=== PATIENT | female | born 1945 | race Caucasian/White ===

== ENCOUNTER 2016-05-15 12:38 | Inpatient (IN) | payer OTHER ==
[~2016-05-15] VITALS: Ht 149.9 cm; Wt 63.0 kg
[~2016-05-15 12:38] MED LIST: ALBU1.257 NEB; ALBUAER INH; CHOL200010 PO; DIPH-437 PO; DOCU-94 PO; FEXO1TAB49 PO; HYDR-5688 PO; METO1TAB69 PO; MULTCAP98 PO; ONDA8TAB6 PO; PROC1TAB5 PO; SPRIN/30 INH; VNTHFA/IN INH; ZOLE1INJ IV
[2016-05-15] MEDS ORDERED: OPTIRAY 320 IV PRN (13:15)
[2016-05-15 13:23] LABS: BASO % 0.4 %; BASO ABS # 0.04 K/uL (0-0.2); COMPLETE YES; EOS % 3.5 %; HEMATOCRIT 34.7 % (37-47); IG% 0.3 %; LYMPH % 8.2 %; LYMPH ABS # 0.87 K/uL (1.2-3.4); MEAN CELL VOLUME 84.6 fL (80-100); MEAN CORPUSCULAR HEMOGLOBIN 28.5 pg (25-34); MEAN CORPUSCULAR HGB CONC 33.7 g/dl (32-36); MONO % 3.7 %; NEUT % 83.9 %; PLATELET COUNT 312 K/uL (130-400)
[2016-05-15] MEDS ORDERED: LOSA50TA6 PO ×2 (13:25→17:30)
[2016-05-15] MEDS ORDERED: PEMB1INJ IV (13:25)
--- NOTE | 2016-05-15 13:33 | EMERGENCY ROOM VISIT NOTE ---
History Report prepared by Mavis: Kaykay Crocker Under the Supervision of: Dr. Christos Mena D.O. First contact with patient: 12:51 Chief Complaint: RESPIRATORY PROBLEMS Stated Complaint: L SIDED PAIN, LUNG CA PT History of Present Illness The patient is a 70 year old female who presents to the Emergency Room with complaints of persistent respiratory problems that have worsened over the last three to four days. Per the patient's son, the patient is currently undergoing chemotherapy for stage IV metastatic lung cancer. He states that the patient has had pain in her left side. The patient's son states that her pain started 3 -4 days ago. The patient notes a persistent cough but denies any fever or chills. She denies wearing oxygen at home. The patient notes a history of hypertension, cholecystectomy, , and a back surgery. She states that she took a hydrocodone prior to arrival. The patient denies any tobacco or alcohol use. The patient's son states that the patient is supposed to have chemotherapy every three weeks. Source of History: patient Onset: 3-4 days Position: other (global) Quality: other (respiratory porblems) Timing: other (persistent) Associated Symptoms: + cough, No chills, No fevers Note: Associated Symptoms: left side pain Review of Systems See HPI for pertinent positives & negatives. A total of 10 systems reviewed and were otherwise negative. Past Medical & Surgical Medical Problems: (1) Cancer Surgical Problems: (1) S/P cholecystectomy Family History Cancer Heart disease Hypertension Lung disease Social History Smoking Status: Former Smoker Alcohol Use: none Current/Historical Medications Scheduled Cholecalciferol (Vitamin D), 2,000 UNITS PO DAILY Docusate Sodium (Colace), 100 MG PO BID Fexofenadine Hcl (Delores Allergy), 180 MG PO DAILY Losartan Potassium (Cozaar), Unknown Dose PO DAILY Metoprolol Succ (Toprol Xl) (Toprol-Xl ), 100 MG PO DAILY Multiple Vitamins W/ Minerals (Icaps), 1 CAP PO DAILY Pembrolizumab (Keytruda), 100 MG IV EVERY 3 WEEKS Tiotropium [place] (Spiriva Handihaler), 1 CAP INH DAILY Zoledronic Acid (Zometa), 4 MG IV MONTHLY Scheduled PRN Acetaminophen/Diphenhydramine (Tylenol Pm), 1 TAB PO HS PRN for Insomnia Albuterol Hfa (Ventolin Hfa), 2 PUFFS INH Q6H PRN for SOB/Wheezing Albuterol Sulfate (Albuterol Sulfate), 1 VIAL NEB Q4 PRN for SOB/Wheezing Hydrocodone/Acetaminophen 5MG/325MG ([place] 5MG/325MG), 1 TABLET PO Q6 PRN for Pain Allergies Coded Allergies: Latex (Verified Allergy, Mild, Itching, 02/14/16) Nitrofurantoin (Verified Allergy, Unknown, ., 02/14/16) Sulfamethoxazole w/Trimethoprim (Verified Allergy, Unknown, ., 02/14/16) Physical Exam Vital Signs Date Time Temp Pulse Resp B/P Pulse Ox O2 Delivery O2 Flow Rate FiO2 05/15/16 15:29 87 22 167/95 97 Nasal Cannula 3.0 05/15/16 14:42 81 18 189/102 05/15/16 13:04 94 Nasal Cannula 2.0 05/15/16 13:04 80 05/15/16 12:56 94 Nasal Cannula 2.0 05/15/16 12:56 94 Nasal Cannula 2.0 05/15/16 12:45 37.0 87 18 139/91 84 Room Air Physical Exam GENERAL: Patient is awake, alert, mildly anxious appearing, overall comfortable appearing, no apparent pain. EYES: The conjunctivae are clear. The pupils are round and reactive. EARS, NOSE, MOUTH AND THROAT: The nose is without any evidence of any deformity. Mucous membranes are moist tongue is midline NECK: The neck is nontender and supple. RESPIRATORY: Lung sounds diminished in left lung. Sounds are absent at the left base. Mild tachypnea and conversational dyspnea noted. CARDIOVASCULAR: Regular rate and rhythm noted there no murmurs rubs or gallops normal S1 normal S2 GASTROINTESTINAL: The abdomen is soft. Bowel sounds are present in all quadrants. Abdomen is nontender MUSCULOSKELETAL/EXTREMITIES: There is no evidence of gross deformity full range of motion is noted in the hips and shoulders SKIN: There is no obvious evidence of any rash. There are no petechiae, pallor or cyanosis noted. NEUROLOGIC: Patient is awake alert and oriented x3. Medical Decision & Procedures ER Provider Diagnostic Interpretation: Radiology results as stated below per my review and radiologist interpretation: CHEST CTA for PULMONARY ARTERIES CT DOSE: 255.88 mGy.cm HISTORY: Chest pain dyspnea TECHNIQUE: Multiaxial CT images of the chest were performed following the intravenous administration of contrast to evaluate the pulmonary arteries. Maximal intensity projection images were also obtained. COMPARISON STUDY: 03/16/2016 FINDINGS: Progressive left pleural effusion. Left lower lobe atelectasis. Study is negative for pulmonary embolus. Mucous plug in the lung bases. Findings suggesting a component of mild pulmonary hypertension. Mild atelectasis right base. IMPRESSION: 1. Study is negative for pulmonary embolus. 2. Progressive increase in size of a left pleural effusion. 3. Progressive left lower lobe consolidative change. 4. Baseline emphysematous and interstitial change. 5. Secondary evidence for a component of pulmonary arterial hypertension 6. Progressive mucous plugging bilaterally Electronically signed by: Jose Pritchett M.D. 05/15/2016 3:09 PM Dictated Date/Time: 05/15/2016 3:05 PM SINGLE VIEW CHEST CLINICAL HISTORY: Atypical chest pain. FINDINGS: An AP, portable, upright chest radiograph is compared to study dated 02/14/2016 and correlated with chest CT dated 03/16/2016. The examination is degraded by portable technique and patient rotation. A right sided central venous infusion port is new from 02/14/2016. The heart is enlarged and there is atherosclerotic calcification of the thoracic aorta. The pulmonary vasculature is noncongested. Enlargement of the central pulmonary arteries indicates pulmonary artery hypertension. Advanced emphysema and chronic interstitial thickening is similar to previous. There is a left pleural effusion with left basilar consolidation. The patient's known left perihilar mass lesion is not well assessed. No pneumothorax is seen. The skeletal structures are osteopenic. The bony thorax is grossly intact. Degenerative change is seen throughout the thoracic spine. IMPRESSION: 1. Cardiomegaly and advanced emphysema. 2. Layering left pleural effusion and left basilar consolidation is similar to the 03/16/2016 examination. This likely represents atelectasis. Superimposed pneumonia would be impossible to exclude. Clinical correlation required. 3. The patient's known left perihilar lung mass is not well-visualized. 4. A central venous infusion port is new from previous. Electronically signed by: Eric Griffin M.D. 05/15/2016 1:31 PM Dictated Date/Time: 05/15/2016 1:28 PM Laboratory Results 05/15/16 13:10 Red Blood Count 4.10, Mean Corpuscular Volume 84.6, Mean Corpuscular Hemoglobin 28.5, Mean Corpuscular Hemoglobin Concent 33.7, Mean Platelet Volume 8.0, Neutrophils (%) (Auto) 83.9, Lymphocytes (%) (Auto) 8.2, Monocytes (%) (Auto) 3.7, Eosinophils (%) (Auto) 3.5, Basophils (%) (Auto) 0.4, Neutrophils # (Auto) 8.90, Lymphocytes # (Auto) 0.87, Monocytes # (Auto) 0.39, Eosinophils # (Auto) 0.37, Basophils # (Auto) 0.04 05/15/16 13:10 Test 05/15/16 13:10 White Blood Count 10.60 K/uL (4.8-10.8) Red Blood Count 4.10 M/uL (4.2-5.4) Hemoglobin 11.7 g/dL (12.0-16.0) Hematocrit 34.7 % (37-47) Mean Corpuscular Volume 84.6 fL (80-100) Mean Corpuscular Hemoglobin 28.5 pg (25-34) Mean Corpuscular Hemoglobin Concent 33.7 g/dl (32-36) Platelet Count 312 K/uL (130-400) Mean Platelet Volume 8.0 fL (7.4-10.4) Neutrophils (%) (Auto) 83.9 % Lymphocytes (%) (Auto) 8.2 % Monocytes (%) (Auto) 3.7 % Eosinophils (%) (Auto) 3.5 % Basophils (%) (Auto) 0.4 % Neutrophils # (Auto) 8.90 K/uL (1.4-6.5) Lymphocytes # (Auto) 0.87 K/uL (1.2-3.4) Monocytes # (Auto) 0.39 K/uL (0.11-0.59) Eosinophils # (Auto) 0.37 K/uL (0-0.5) Basophils # (Auto) 0.04 K/uL (0-0.2) RDW Standard Deviation 48.2 fL (36.4-46.3) RDW Coefficient of Variation 15.5 % (11.5-14.5) Immature Granulocyte % (Auto) 0.3 % Immature Granulocyte # (Auto) 0.03 K/uL (0.00-0.02) Prothrombin Time 13.1 SECONDS (9.0-12.0) Prothromb Time International Ratio 1.2 (0.9-1.1) Activated Partial Thromboplast Time 32.7 SECONDS (21.0-31.0) Partial Thromboplastin Ratio 1.3 Anion Gap 9.0 mmol/L (3-11) Est Creatinine Clear Calc Drug Dose 68.2 ml/min Estimated GFR () 105.9 Estimated GFR (Non- 91.4 BUN/Creatinine Ratio 17.3 (10-20) Calcium Level 8.1 mg/dl (8.5-10.1) Magnesium Level 1.9 mg/dl (1.8-2.4) Total Bilirubin 0.5 mg/dl (0.2-1) Direct Bilirubin 0.2 mg/dl (0-0.2) Aspartate Amino Transf (AST/SGOT) 9 U/L (15-37) Alanine Aminotransferase (ALT/SGPT) 13 U/L (12-78) Alkaline Phosphatase 62 U/L (45-117) Total Creatine Kinase 33 U/L (26-192) Creatine Kinase MB 0.7 ng/ml (0.5-3.6) Creatine Kinase MB Ratio 2.1 (0-3.0) Troponin I < 0.015 ng/ml (0-0.045) Pro-B-Type Natriuretic Peptide 1011 pg/ml (0-900) Total Protein 6.9 gm/dl (6.4-8.2) Albumin 2.6 gm/dl (3.4-5.0) Lipase 113 U/L (73-393) Laboratory results per my review. Medications Administered Medications (Trade) Dose Ordered Sig/Lindsay Route Start Time Stop Time Status Last Admin Dose Admin Potassium Chloride (Klor-Con M10) 10 meq NOW STAT PO 05/15/16 14:04 05/15/16 14:05 DC 05/15/16 14:42 10 MEQ Potassium Chloride 10 meq 10 meq NOW STAT IV 05/15/16 14:04 05/15/16 14:05 DC 05/15/16 15:29 10 MEQ Sodium Chloride (Nss 500ml) 500 ml @ 999 mls/hr Q31M STAT IV 05/15/16 15:31 05/15/16 16:01 DC 05/15/16 15:31 999 MLS/HR ECG Indication: SOB/dyspnea Rate (beats per minute): 80 Rhythm: normal sinus Findings: no ectopy, other (no acute ST segment abnormalities) Comparison ECG Date: no prior available ED Course 1255: The patient was evaluated in room C10. A complete history and physical examination were performed. 1404: Ordered Potassium Chloride 10 meq IV, Potassium Chloride 10 meq PO. 1426: I reevaluated the patient and she is resting comfortably. 1526: I reevaluated the patient and she is resting comfortably. I discussed the exam findings with her and I discussed the treatment plan. She verbalized complete understanding and agreement. She is going to be evaluated for further treatment. 1531: Ordered Sodium Chloride 500 ml @ 999 mls/hr IV, Levofloxacin 750 mg IV. 1535: I discussed the patient's case with Sushil Restrepo. She is going to evaluate the patient for further treatment. Medical Decision Differential diagnosis: Etiologies such as infections, reactive airway disease, pneumonia, pneumothorax , COPD, CHF, cardiac ischemia, pulmonary embolism, musculoskeletal, gastrointestinal, as well as others were entertained. Nursing notes reviewed. The patient is a 70-year-old female who presented to the emergency department for an evaluation of shortness of breath. The patient has a history of lung cancer and has had worsening left-sided pleural effusion. In February she did have a small left pleural effusion which was felt to be associated with her to her. She was having shortness of breath and when she called her primary oncologist at [facility] she was unable to get an appointment and was unable to have a CAT scan is now patient. Her primary oncologist sent her to the emergency department for the possibility of pulmonary embolism. The patient's chest x-ray shows a much worsening left pleural effusion. The patient was sent for a CT of the chest and this was obtained in the emergency department. It did show signs of a moderate left pleural effusion with possible infiltrative changes in the left lower lobe. I discussed the patient's laboratory radiographic studies with her. She was treated with potassium replacement. She was also treated with IV fluids as well as IV antibiotic. Blood cultures were obtained. She was also treated with pain medication. I discussed the patient's condition with the on-call [facility] hospitalist group. They have agreed to evaluate the patient in the emergency department for further management and disposition. Consults Time Called: 1523 Consulting Physician: Sushil Restrepo Returned Call: 1535 I discussed the patient's case with Sushil Restrepo. She is going to evaluate the patient for further treatment. Impression Primary Impression: Pneumonia Additional Impressions: Hypoxia Dyspnea on exertion Pleural effusion Hypokalemia Scribe Attestation The scribe's documentation has been prepared under my direction and personally reviewed by me in its entirety. I confirm that the note above accurately reflects all work, treatment, procedures, and medical decision making performed by me. Departure Information Dispostion Being Evaluated By Hospitalist Referrals Cain Quiñonez D.OAlaina (PCP) Problem Qualifiers Primary Impression: Pneumonia Pneumonia type: due to unspecified organism Laterality: left Lung location : lower lobe of lung Qualified Codes: J18.1 - Lobar pneumonia, unspecified organism
[2016-05-15 13:46] LABS: INR 1.2 (0.9-1.1); PARTIAL THROMBOPLASTIN RATIO 1.3; PROTHROMBIN TIME (PATIENT) 13.1 SECONDS (9.0-12.0)
[2016-05-15 13:47] LABS: ALKALINE PHOSPHATASE 62 U/L (45-117); ALT/SGPT 13 U/L (12-78); AST/SGOT 9 U/L (15-37); BLOOD UREA NITROGEN 11 mg/dl (7-18); BUN/CREATININE RATIO 17.3 (10-20); CALCIUM 8.1 mg/dl (8.5-10.1); CARBON DIOXIDE 28 mmol/L (21-32); CHLORIDE 97 mmol/L (98-107); CREATININE 0.62 mg/dl (0.60-1.20); GLUCOSE 101 mg/dl (70-99); POTASSIUM 2.9 mmol/L (3.5-5.1); SODIUM 134 mmol/L (136-145)
[2016-05-15 13:53] LABS: CKMB/CK RATIO 2.1 (0-3.0)
[2016-05-15] MEDS ORDERED: POTASSIUM CHLORIDE 10 MEQ TABCR PO STA ×2 (14:04→17:04)
[2016-05-15] MEDS ORDERED: POTASSIUM CHLORIDE 10 MEQ / 100ML WTR IV STA (14:04)
[2016-05-15 14:21] LABS: MAGNESIUM 1.9 mg/dl (1.8-2.4)
--- NOTE | 2016-05-15 15:10 | DIAGNOSTIC IMAGING REPORT ---
ADDENDUM Comparison is performed to a [facility] dated 04/24/2016. Findings as noted in the prior study are progressive compared to the study of 04/24/2016. Appearance is slightly less dramatic as compared to the initial comparison from 03/16/2016. Left pleural effusion has increased in volume. Basilar consolidative change involving the left lower lobe is slightly progressive. Mucous plugging and basilar interstitial change again are somewhat progressive. IMPRESSION: All findings are mildly progressive compared to the prior study of 04/24/2016. Electronically signed by: Jose Pritchett M.D. 05/17/2016 11:41 AM Dictated Date/Time: 05/17/2016 11:38 AM ORIGINAL REPORT CHEST CTA for PULMONARY ARTERIES CT DOSE: 255.88 mGy.cm HISTORY: Chest pain dyspnea TECHNIQUE: Multiaxial CT images of the chest were performed following the intravenous administration of contrast to evaluate the pulmonary arteries. Maximal intensity projection images were also obtained. COMPARISON STUDY: 03/16/2016 FINDINGS: Progressive left pleural effusion. Left lower lobe atelectasis. Study is negative for pulmonary embolus. Mucous plug in the lung bases. Findings suggesting a component of mild pulmonary hypertension. Mild atelectasis right base. IMPRESSION: 1. Study is negative for pulmonary embolus. 2. Progressive increase in size of a left pleural effusion. 3. Progressive left lower lobe consolidative change. 4. Baseline emphysematous and interstitial change. 5. Secondary evidence for a component of pulmonary arterial hypertension 6. Progressive mucous plugging bilaterally Electronically signed by: Jose Pritchett M.D. 05/15/2016 3:09 PM Dictated Date/Time: 05/15/2016 3:05 PM
[2016-05-15] MEDS ORDERED: SODIUM CHLORIDE 0.9% 500ML 500 ML IV STA (15:31)
[2016-05-15] MEDS ORDERED: LEVAQUIN 750MG / 150ML D5W IV STA (15:31)
[2016-05-15] MEDS ORDERED: HYDROCODONE/ACETAMOPHEN 5/325MG TAB PO STA (16:09)
[2016-05-15] MEDS ORDERED: POTASSIUM CHLR 20 MEQ / WTR 40 MEQ in PREMIXED WATER 100 ML IV STA (17:04)
[2016-05-15] MEDS ORDERED: ONDANSETRON INJ 2 MG/ML 2 ML VIAL IV PRN (17:15)
[2016-05-15] MEDS ORDERED: ACETAMINOPHEN 325 MG TAB PO PRN (17:15)
[2016-05-15] MEDS ORDERED: NITROGLYCERIN 0.4 MG SL PER TAB CHARGE SL PRN (17:15)
[2016-05-15] MEDS ORDERED: POTASSIUM CHLR 10MEQ / WTR IV SCH (17:45)
--- NOTE | 2016-05-15 19:08 | History and Physical ---
History & Physical Date & Time of Service: May 15, 2016 at 17:42 Chief Complaint: L Sided Pain, Lung Ca Pt Primary Care Physician: Cain Quiñonez D.O. History of Present Illness Source: patient This is a 70 y/o female with PMHx of Stage IV Lung CA currently undergoing immunotherapy, HTN and other problems as outlined below who presents to the ED c /o worsening SOB x 4 days. Pt reports that 4 days ago she developed SOB that is better with sitting up straight and worse with exertion. Sxs are assoc with a dry cough, mild wheezing and L sided rib pain. The rib pain is located just below the L breast and is described as waxing and waning "sharp" pain that at times reaches a 10/10. She has been taking hydrocodone at home for her discomfort with no relief. Pt called her oncologist today who recommended she go to the ED to have an evaluation for a possible blood clot in her lungs. Pt was hospitalized at [facility] in March with a small L pleural effusion and pneumonia. The pleural effusion was too small to tap therefore patient was treated with abx. Her sxs greatly improved and she had been doing well until a few days ago. 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 She is currently receiving immunotherapy with Keytruda every 3 weeks. Her last treatment was 04/26. Patient follows with hem/ onc, Dr.Keriann Chávez. Pt denies fever/chills, diaphoresis, chest pain, abd pain , N/V, bowel or bladder issues, LE edema ,calf pain, lightheadedness/dizziness. In the ED, pt is hypoxic to 84% on room air. She is now saturating well on 3L O2. Pt is afebrile with no leukocytosis. K+ 2.9. CTA chest negative for PE. + progressing L pleural effusion and L lower lobe consolidation. Pt is stable and will be admitted for further evaluation and treatment. Past Medical/Surgical History Medical Problems: (1) Asthma, mild persistent Status: Chronic (2) HTN (hypertension) Status: Chronic (3) Lung cancer Permanent Comment: Development of rib pain CT findings of metastatic disease, lung lesion and lymphadenopathy Status post bronchoscopy and biopsy Subcarinal node revealing squamous cell carcinoma 02/03/2016 Staging studies revealing bone, adrenal, and liver metastases Stage TX N3 N1b Initiation of immunotherapy with Keytruda Pain in the right SI area. Status post completion of radiation therapy to the right hip 04/21/2016 received 3000 cGy Status: Chronic Surgical Problems: (1) S/P cholecystectomy Status: Chronic Family History Cancer Heart disease Hypertension Lung disease Social History Smoking Status: Former Smoker (20 pack year history; quit 03/2015) Alcohol Use: none Drug Use: none Housing status: lives alone Occupational Status: retired Multi-Drug Resistant Organisms History of MDRO: No Allergies Coded Allergies: Latex (Verified Allergy, Mild, Itching, 02/14/16) Nitrofurantoin (Verified Allergy, Unknown, ., 02/14/16) Sulfamethoxazole w/Trimethoprim (Verified Allergy, Unknown, ., 02/14/16) Home Medications Scheduled Cholecalciferol (Vitamin D), 2,000 UNITS PO DAILY Docusate Sodium (Colace), 100 MG PO BID Fexofenadine Hcl (Delores Allergy), 180 MG PO DAILY Losartan Potassium (Cozaar), 50 MG PO DAILY Metoprolol Succ (Toprol Xl) (Toprol-Xl ), 100 MG PO DAILY Multiple Vitamins W/ Minerals (Icaps), 1 CAP PO DAILY Pembrolizumab (Keytruda), 100 MG IV EVERY 3 WEEKS Tiotropium [place] (Spiriva [place]), 1 CAP INH DAILY Zoledronic Acid (Zometa), 4 MG IV MONTHLY Scheduled PRN Acetaminophen/Diphenhydramine (Tylenol Pm), 1 TAB PO HS PRN for Insomnia Albuterol Hfa (Ventolin Hfa), 2 PUFFS INH Q6H PRN for SOB/Wheezing Albuterol Sulfate (Albuterol Sulfate), 1 VIAL NEB Q4 PRN for SOB/Wheezing Hydrocodone/Acetaminophen 5MG/325MG ([place] 5MG/325MG), 1 TABLET PO Q6 PRN for Pain Review of Systems Constitutional: + fatigue, + weakness, No chills, No fever, No sweats Eyes: No worsening of vision ENT: No hearing loss Respiratory: + cough, + dyspnea at rest, + dyspnea on exertion, + shortness of breath, + wheezing, No sputum Cardiovascular: No chest pain, No claudication, No edema Abdomen: No constipation, No diarrhea, No nausea, No pain, No vomiting Musculoskeletal: No calf pain, No swelling Genitourinary - Female: No dysuria Neurologic: + weakness Psychiatric: No depression symptoms Endocrine: + fatigue Hematologic / Lymphatic: No abnormal bleeding/bruising Integumentary: No new/changing skin lesions Physical Exam Vital Signs Date Time Temp Pulse Resp B/P Pulse Ox O2 Delivery O2 Flow Rate FiO2 05/15/16 17:02 75 20 173/89 98 Nasal Cannula 2.0 05/15/16 17:01 78 05/15/16 15:29 87 22 167/95 97 Nasal Cannula 3.0 05/15/16 14:42 81 18 189/102 05/15/16 13:04 94 Nasal Cannula 2.0 05/15/16 13:04 80 05/15/16 12:56 94 Nasal Cannula 2.0 05/15/16 12:56 94 Nasal Cannula 2.0 05/15/16 12:45 37.0 87 18 139/91 84 Room Air General Appearance: WD/WN, no apparent distress, + pertinent finding (Pt is laying in bed with son and daughter at bedside; pt noted to have conversational dyspnea) Head: normocephalic, atraumatic Eyes: normal inspection ENT: hearing grossly normal Neck: supple Respiratory/Chest: chest non-tender, no respiratory distress, no accessory muscle use, + wheezing, + pertinent finding (decreased breath sounds L lung base ) Cardiovascular: regular rate, rhythm, no edema, no murmur Abdomen/GI: normal bowel sounds, non tender, soft Back: normal inspection Extremities/Musculoskelatal: normal inspection, no calf tenderness, no pedal edema Neurologic/Psych: alert, normal mood/affect, oriented x 3 Skin: normal color, warm/dry Diagnostics Laboratory Results Results Past 24 Hours Test 05/15/16 13:10 Range/Units White Blood Count 10.60 4.8-10.8 K/uL Red Blood Count 4.10 4.2-5.4 M/uL Hemoglobin 11.7 12.0-16.0 g/dL Hematocrit 34.7 37-47 % Mean Corpuscular Volume 84.6 80-100 fL Mean Corpuscular Hemoglobin 28.5 25-34 pg Mean Corpuscular Hemoglobin Concent 33.7 32-36 g/dl Platelet Count 312 130-400 K/uL Mean Platelet Volume 8.0 7.4-10.4 fL Neutrophils (%) (Auto) 83.9 % Lymphocytes (%) (Auto) 8.2 % Monocytes (%) (Auto) 3.7 % Eosinophils (%) (Auto) 3.5 % Basophils (%) (Auto) 0.4 % Neutrophils # (Auto) 8.90 1.4-6.5 K/uL Lymphocytes # (Auto) 0.87 1.2-3.4 K/uL Monocytes # (Auto) 0.39 0.11-0.59 K/uL Eosinophils # (Auto) 0.37 0-0.5 K/uL Basophils # (Auto) 0.04 0-0.2 K/uL RDW Standard Deviation 48.2 36.4-46.3 fL RDW Coefficient of Variation 15.5 11.5-14.5 % Immature Granulocyte % (Auto) 0.3 % Immature Granulocyte # (Auto) 0.03 0.00-0.02 K/uL Prothrombin Time 13.1 9.0-12.0 SECONDS Prothromb Time International Ratio 1.2 0.9-1.1 Activated Partial Thromboplast Time 32.7 21.0-31.0 SECONDS Partial Thromboplastin Ratio 1.3 Sodium Level 134 136-145 mmol/L Potassium Level 2.9 3.5-5.1 mmol/L Chloride Level 97 98-107 mmol/L Carbon Dioxide Level 28 21-32 mmol/L Anion Gap 9.0 3-11 mmol/L Blood Urea Nitrogen 11 7-18 mg/dl Creatinine 0.62 0.60-1.20 mg/dl Est Creatinine Clear Calc Drug Dose 68.2 ml/min Estimated GFR () 105.9 Estimated GFR (Non- 91.4 BUN/Creatinine Ratio 17.3 10-20 Random Glucose 101 70-99 mg/dl Calcium Level 8.1 8.5-10.1 mg/dl Magnesium Level 1.9 1.8-2.4 mg/dl Total Bilirubin 0.5 0.2-1 mg/dl Direct Bilirubin 0.2 0-0.2 mg/dl Aspartate Amino Transf (AST/SGOT) 9 15-37 U/L Alanine Aminotransferase (ALT/SGPT) 13 12-78 U/L Alkaline Phosphatase 62 45-117 U/L Total Creatine Kinase 33 26-192 U/L Creatine Kinase MB 0.7 0.5-3.6 ng/ml Creatine Kinase MB Ratio 2.1 0-3.0 Troponin I < 0.015 0-0.045 ng/ml Pro-B-Type Natriuretic Peptide 1011 0-900 pg/ml Total Protein 6.9 6.4-8.2 gm/dl Albumin 2.6 3.4-5.0 gm/dl Lipase 113 73-393 U/L Microbiology Results 05/15/16 Blood Culture, Received Pending 05/15/16 Blood Culture, Received Pending Diagnostic Radiology CXR IMPRESSION: 1. Cardiomegaly and advanced emphysema. 2. Layering left pleural effusion and left basilar consolidation is similar to the 03/16/2016 examination. This likely represents atelectasis. Superimposed pneumonia would be impossible to exclude. Clinical correlation required. 3. The patient's known left perihilar lung mass is not well-visualized. 4. A central venous infusion port is new from previous. CT CHEST IMPRESSION: 1. Study is negative for pulmonary embolus. 2. Progressive increase in size of a left pleural effusion. 3. Progressive left lower lobe consolidative change. 4. Baseline emphysematous and interstitial change. 5. Secondary evidence for a component of pulmonary arterial hypertension 6. Progressive mucous plugging bilaterally EKG EKG: NSR at 80 bpm with no acute ischemic changes notes; no previous EKG available Impression Assessment and Plan HYPOXIA/ACUTE RESPIRATORY FAILURE SECONDARY TO L SIDED PNEUMONIA/PLEURAL EFFUSION pt presented with worsening SOB assoc with dry cough and L rib pain; O2 84% on room air--> improved to 97% on 3L O2 -admit to telemetry -pt is afebrile with no leukocytosis -CTA chest + L sided pneumonia and progressing pleural effusion; no evidence of PE -obtain US to evaluate effusion for possible thoracentesis -blood cultures-pending -start duonebs and IV abx (Levaquin) -cont supplemental O2 -consult pulm, Dr. White -monitor HYPOKALEMIA -K+ 2.9; replete -monitor with daily prp STAGE IV SQUAMOUS CELL LUNG CA -mets to liver, bone and adrenals -s/p palliative radiation to R hip -currently undergoing immunotherapy with Keytruda every 3 weeks (last tx 04/26) -consulted hem/onc HTN -BP elevated 150/95; patient records daily vitals and reports that avg BP is around 140/90 -cont losartan and metoprolol -monitor DVT PROPHYLAXIS -subq Lovenox CODE STATUS -DNR per discussion with patient upon admission DISPO Pt seen in collaboration with Dr. Hernandez. Please see her addendum for further details. Thanks! ADDENDUM: I have seen and examined the patient and have discussed the case with the provider above. I agree with the assessment and plan as stated. 70 yo F with Stage IV squamous cell lung cancer currently undergoing Pembrolizumab infusions and palliative XRT to R hip who presents with acute worsening of chronic L lateral chest pain. This pain has been present since shortly after her diagnosis of lung cancer in Feb 2016, but has recently gotten worse. She had an episode of worsening pain in March and was sent to pulmonary medicine in [place] as an outpatient. CT imaging at that time revealed LLL consolidation with collapse of her LLL. She was placed on Levaquin PO, and although she was noted to have a small pleural effusion, it was considered too small to tap so no intervention was performed at that time. On 04/[address] chest revealed persistent atelectatic changes and pleural effusion in the setting of her mass. Todays CXR reveals a worsening of her pleural effusion (vs malignancy/collapse) as compared to the CXR in Feb. Agree with u/s to measure the unilateral effusion and consider tapping. Differential diagnosis includes but is not limited to tumor progression with local collapse of lung contributing to hypoxia, post-obstructive pneumonia (no sepsis and dry cough present, denies fevers chillsinfection less likelymucous plugging is present on CT today), malignant effusion. Replace K as above. Cont with supportive care including good pain control, Duonebs, oxygen and Levaquin. Keri Hernandez, DO Hospitalist Level of Care Telemetry Resuscitation Status DO NOT RESUSCITATE VTE Prophylaxis VTE Risk Assessment Done? Y/N: Yes Risk Level: Moderate Given or contraindicated: Enoxaparin (Lovenox)SQ
[2016-05-15 20:00] VITALS: BP 162/90; PULSE 87; TEMP 36.3; O2SAT 96
[2016-05-15] MEDS: ALBUT/IPRATROP 3MG/0.5MG NEB 3 ML VIAL INH SCH (20:00)
[2016-05-15] MEDS ORDERED: ONDANSETRON 4MG OD TAB PO PRN (20:45)
[2016-05-15] MEDS: ENOXAPARIN 40 MG/0.4 ML SYR SC SCH (21:00)
[2016-05-15] MEDS: DOCUSATE SODIUM 100 MG CAP PO SCH (21:04)
[2016-05-15 21:49] VITALS: BP 162/90; PULSE 87; TEMP 36.3; O2SAT 96; Ht 149.9 cm; Wt 63.0 kg
[2016-05-15] MEDS ORDERED: POTASSIUM CHLORIDE 20 MEQ TABCR PO ONE (23:00)
[2016-05-15] MEDS: HYDROCODONE/ACETAMOPHEN 5/325MG TAB PO PRN (23:54)
[2016-05-16] VITALS (14 sets, daily range): BP systolic 134–176; BP diastolic 78–96; PULSE 86–95; TEMP 36.5–37; O2SAT 90–98
[2016-05-16] MEDS: ACETAMINOPHEN 500 MG TAB PO PRN ×2 (00:07→21:05)
--- NOTE | 2016-05-16 06:33 | DIAGNOSTIC IMAGING REPORT ---
Pleural effusion. Chest ultrasound. EFFUSION-CHEST/MEDIASTINUM CLINICAL HISTORY: L pleural effusion TECHNIQUE: Ultrasound COMPARISON STUDY: None FINDINGS: Left pleural effusion with estimated volume of 600 cc. No significant right effusion IMPRESSION: 600 cc left effusion. No significant right effusion. Electronically signed by: Jose Pritchett M.D. 05/16/2016 6:31 AM Dictated Date/Time: 05/16/2016 6:31 AM
--- NOTE | 2016-05-16 07:13 | Medical Consult ---
Consultation Note Date of Service May 16, 2016. Consultation Note Consult Dictated #[id number]
[2016-05-16] MEDS: ALBUT/IPRATROP 3MG/0.5MG NEB 3 ML VIAL INH SCH ×4 (07:22→19:02)
[2016-05-16 07:23] LABS: HEMATOCRIT 33.8 % (37-47); MEAN CELL VOLUME 86.9 fL (80-100); MEAN CORPUSCULAR HEMOGLOBIN 29.3 pg (25-34); MEAN CORPUSCULAR HGB CONC 33.7 g/dl (32-36); MEAN PLATELET VOLUME 8.3 fL (7.4-10.4); PLATELET COUNT 326 K/uL (130-400); RED BLOOD COUNT 3.89 M/uL (4.2-5.4); WHITE BLOOD COUNT 10.13 K/uL (4.8-10.8)
--- NOTE | 2016-05-16 07:28 | CONSULTATION REPORT ---
DATE OF CONSULTATION: 05/16/2016 REASON FOR CONSULTATION: Pleural effusion. HISTORY OF PRESENT ILLNESS: This is a 70-year-old female with a history of stage IV lung cancer. The patient had her lung cancer diagnosed in January of 2016. During that time she was experiencing some worsening shortness of breath along with some pleuritic left-sided chest pain. She said this resulted in a diagnostic evaluation including numerous x-rays and CAT scans and she ultimately underwent a bronchoscopy in January 2016 at [facility], where she was diagnosed with lung cancer. The patient also notes at that time she was told that she had a small left pleural effusion; however, due to the size of the effusion, no intervention was undertaken as the risk was felt to be too great. The patient says that she is currently undergoing immune therapy directed by Dr. Chávez of [facility] hematology/oncology. The patient was referred to the Emergency Department yesterday as she had some worsening left-sided pleuritic chest pain along with shortness of breath that is present with activity and sometimes even at rest. Upon presentation to the Emergency Department, she did have a CT scan of the chest that was negative for pulmonary emboli. She was noted to have a moderate left pleural effusion with some consolidative changes in the left lower lobe. Chest x-ray also revealed left pleural effusion and a chest ultrasound quantified this effusion at approximately 600 mL. Labs were undertaken which revealed a CBC with a white blood cell count and platelet count, which were normal. Hemoglobin and hematocrit 11.7 and 34.7. Her INR is noted to be 1.2 and a chemistry profile showed sodium was 134, potassium 2.9, BUN and creatinine were both normal. We have now been asked to see the patient for her pleural effusion. Concerning other symptomatology, she has not reported any falls, head injuries, visual changes, tinnitus, sore throat or neck pain. She does have left-sided pleuritic chest pain. She is short of breath with activity and sometimes at rest. She denies fever, shakes, chills, nausea, vomiting, diarrhea, or abdominal pain. She denies any myalgias. She denies dysuria. She has no history of DVT or PE. She has no history of stroke or seizure. PAST MEDICAL HISTORY: 1. Lung cancer as described above. 2. Hypertension. PAST SURGICAL HISTORY: 1. Cholecystectomy. 2. . 3. Lumbar spine surgery. 4. Bronchoscopy. ALLERGIES: SHE IS ALLERGIC TO LATEX, MACROBID, AND SULFA. OUTPATIENT MEDICATION REGIMEN: 1. Tylenol as needed. 2. Albuterol as needed. 3. Vitamin D 2000 units daily. 4. Colace 100 mg daily. 5. Delores 100 mg daily. 6. [place] as needed. 7. Cozaar 50 mg daily. 8. Toprol 100 mg daily. 9. Multivitamin daily. 10. Keytruda 100 mg intravenous every 3 weeks. 11. Spiriva daily. 12. Zometa 4 mg IV each month. SOCIAL HISTORY: The patient smoked in excess of 50 years and quit in March 2016. She quantifies her smoking as less 1 pack of cigarettes per day. FAMILY HISTORY: Mother suffered from pancreatic cancer. REVIEW OF SYSTEMS: As noted above. PHYSICAL EXAMINATION: VITAL SIGNS: The patient is afebrile with temperature 36.8, pulse 87 and regular, respirations are 18 and unlabored, blood pressure 156/90, pulse ox 96% on 3 liters. SKIN: Warm with good turgor. GENERAL: She is alert. She is oriented x3. She is in no distress. HEENT: Head is atraumatic, normocephalic. EYES: Pupils equal, round and reactive to light and accommodation. Extraocular motions are intact. EARS: Auditory acuity is grossly intact. NOSE: Nasal patency is intact. Sinuses are nontender. Mouth is moist without exudates. NECK: Supple. There is no JVD. CARDIOVASCULAR: Regular rate and rhythm. LUNGS: Revealed the patient had breath sounds that were present on the right. There are markedly decreased on the left. She was not using accessory muscles. There is no wheezing. ABDOMEN: Soft and nontender. EXTREMITIES: Revealed no cyanosis, clubbing or edema. NEUROLOGIC: Revealed cranial nerves II through XII are grossly intact. No focal deficits are noted. DIAGNOSTIC DATA: As noted above. IMPRESSION: 70-year-old female with left pleural effusion. PLAN: I visited with the patient and her daughter at bedside. I discussed with them the possible etiologies of the pleural effusion including but not limited to trauma, congestive heart failure, parapneumonic or infectious effusion as well as malignant effusion. With her history of lung cancer I have told them that this is likely a malignant effusion. We discussed possible ways to approach this fluid. I told them we could potentially perform a thoracentesis; however, if this is a malignant effusion, the risk of recurrence is high, so I have also described them the procedure of putting a PleurX catheter in which will likely proceed with later this morning.
[2016-05-16 07:52] LABS: BUN/CREATININE RATIO 10.9 (10-20); CALCIUM 8.5 mg/dl (8.5-10.1); CREATININE 0.44 mg/dl (0.60-1.20); MAGNESIUM 1.8 mg/dl (1.8-2.4); POTASSIUM 3.9 mmol/L (3.5-5.1)
[2016-05-16] MEDS ORDERED: MoRPHine SULFATE 2 MG/ML CARP IV PRN (08:15)
--- NOTE | 2016-05-16 08:41 | DIAGNOSTIC IMAGING REPORT ---
CHEST ONE VIEW PORTABLE CLINICAL HISTORY: pleur placement catheter placement COMPARISON STUDY: 05/15/2016 FINDINGS: Interval placement of a left basilar drainage catheter. Interval decrease in size of a left-sided pleural effusion. No evidence pneumothorax. IMPRESSION: Placement of a left basilar drainage catheter. Decrease left pleural effusion. No evidence pneumothorax. Electronically signed by: Jose Pritchett M.D. 05/16/2016 8:40 AM Dictated Date/Time: 05/16/2016 8:39 AM
[2016-05-16] MEDS: TIOTROPIUM BROMIDE 5 PUFF/90 MCG INH INH SCH (09:02)
[2016-05-16] MEDS: METOPROLOL SUCC 50MG EXT REL TAB PO SCH (09:03)
[2016-05-16] MEDS: CHOLECALCIFEROL 1000 INTER.UNIT TAB PO SCH (09:03)
[2016-05-16] MEDS: HYDROCODONE/ACETAMOPHEN 5/325MG TAB PO PRN (09:03)
[2016-05-16] MEDS: CEROVITE ADV FORMULA TAB PO SCH (09:03)
[2016-05-16] MEDS: FEXOFENADINE HCL 180 MG TAB PO SCH (09:04)
[2016-05-16] MEDS: LOSARTAN POTASSIUM 50 MG TAB PO SCH (09:04)
[2016-05-16] MEDS: DOCUSATE SODIUM 100 MG CAP PO SCH ×2 (09:04→21:03)
--- NOTE | 2016-05-16 09:12 | Pulmonary Consultation ---
History General Date of Service: May 16, 2016. Stated Complaint: Hypoxia, pleurisy HPI The patient is a 70 year old female who presents to [facility] with complaints of Hypoxia, Pneumonia. The patient's primary care provider is Cain Quiñonez D.O.. 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 She is being treated with keytruda (Anti-PD-L1) and underwent radiation therapy to the right hip/SI joint for severe pain. She is currently being admitted secondary to severe progressive left-sided pleurisy with notable progressive dyspnea on exertion/shortness of breath at rest. The pleurisy and shortness of breath have been dramatically worsening over the last 4 days. On admission she noted the pleurisy to be a 10 out of 10 and currently at 5 out of 10 status post Pleurx catheter placement with 1-1.5 L of fluid removed. She still notes pleurisy at 8- 10 out of 10 with deep inspiration or movement. She denies: Fever, chills, productive cough, cardiac chest pain or decreased appetite. Historian: patient, family, EMS Review of Systems Constitutional: reports: weakness Eyes: reports: no symptoms ENT: reports: no symptoms Cardiovascular: reports: no symptoms Respiratory: reports: other (pleurisy), shortness of breath Gastrointestinal: reports: no symptoms Genitourinary - Female: reports: no symptoms Musculoskeletal: reports: myalgias Integumentary: reports: no symptoms Neurologic: reports: no symptoms Psychiatric: reports: no symptoms Endocrine: no symptoms Hematologic / Lymphatic: no symptoms Allergic / Immunologic: no symptoms Past Medical History Past Medical History: 1. Epistaxis 2. SCCa of the lung: (TX, N3, N1b) stage IV 7N + on 02/03/16 Mtx: bone (femur), adrenal, liver Keytruda (Anti-PD-L1) x1, Zometa x1 in March 2016 Pain right hip/ SI joint (MRI: mtx disease), rib pain Oncologist: Dr. Bakari Chávez Wheel chair bound Dr. Blair (orthopedic surgery) left femoral neck no surgical intervention XRT C1-hip (04/10-) total cGy: 3000 3. Asthma 4. Emphysema 5. Osteoporosis 6. tinnitius 7. HTN Past Surgical History: 1. Lumbar Surgery 2. Section x1 3. Gallbladder Surgery 4. Tonsillectomy with Adenoidectomy 5. Bronchoscopy bx Family History Cancer Heart disease Hypertension Lung disease 1. CAD/IA 2. HTN 3. Maternal history of pancreatic Cancer Social History Smoking Cigarettes (3/4 ppd) Hx Tobacco Use In Past Year?: Yes Smoking Status: Former Smoker Housing status: lives alone Occupational Status: retired History of MDRO History of MDRO: No Allergies Coded Allergies: Latex (Verified Allergy, Mild, Itching, 02/14/16) Nitrofurantoin (Verified Allergy, Unknown, ., 02/14/16) Sulfamethoxazole w/Trimethoprim (Verified Allergy, Unknown, ., 02/14/16) Current Medications Reported Home Medications Medications Dose Route/Sig Max Daily Dose Days Date Category Dose Instructions Cozaar (Losartan Potassium) 50 Mg Tab 50 Mg PO DAILY 05/15/16 Reported Keytruda (Pembrolizumab) 100 Mg/4 Ml Inj 100 Mg IV EVERY 3 WEEKS 05/15/16 Reported Tylenol Pm (Acetaminophen/Diphenhydramine HCl) 500 Mg/25 Mg Tab 1 Tab PO HS PRN 04/07/16 Reported Zometa (Zoledronic Acid) 4 Mg/100 Ml Inj 4 Mg IV MONTHLY 04/07/16 Reported Spiriva Handihaler (Tiotropium [place]) 30 Puff/540 Mcg Aerp 1 Cap INH DAILY 30 04/07/16 Reported [place] 5MG/325MG (Acetaminophen/Hydrocodone Bitart) Tab 1 Tablet PO Q6 PRN 04/07/16 Reported PRN PAIN Colace (Docusate Sodium) 100 Mg Cap 100 Mg PO BID 02/14/16 Rx Icaps (Multiple Vitamins W/ Minerals) 1 Cap Cap 1 Cap PO DAILY 02/14/16 Reported Delores Allergy (Fexofenadine Hcl) 180 Mg Tab 180 Mg PO DAILY 14 02/14/16 Reported Ventolin Hfa (Albuterol) 200 Puffs/66385 Mcg Aers 2 Puffs INH Q6H PRN 02/14/16 Reported Albuterol Sulfate 1.25 Mg/3 Ml Neb 1 Vial NEB Q4 PRN 5 02/14/16 Reported Vitamin D (Cholecalciferol) 2,000 Unit Cap 2,000 Units PO DAILY 02/14/16 Reported Toprol-Xl (Metoprolol Succinate) 100 Mg Tabcr 100 Mg PO DAILY 02/14/16 Reported Physical Physical Exam Vital Signs: Date Time Temp Pulse Resp B/P Pulse Ox O2 Delivery O2 Flow Rate FiO2 05/16/16 07:22 90 18 97 Nasal Cannula 3.0 05/16/16 07:19 36.9 89 18 176/96 97 Nasal Cannula 3.0 05/16/16 04:00 94 Nasal Cannula 3.0 Humidified Oxygen 05/16/16 03:51 36.8 87 18 156/90 96 Nasal Cannula 3.0 05/16/16 00:00 94 Nasal Cannula 3.0 Humidified Oxygen 05/16/16 00:00 36.5 88 20 170/96 94 Nasal Cannula 3.0 05/15/16 21:49 36.3 87 18 162/90 96 Nasal Cannula 3.0 05/15/16 20:00 36.3 87 18 162/90 96 Nasal Cannula 3.0 Humidified Oxygen 05/15/16 17:40 82 22 152/95 97 Nasal Cannula 3.0 05/15/16 17:02 75 20 173/89 98 Nasal Cannula 2.0 05/15/16 17:01 78 05/15/16 15:29 87 22 167/95 97 Nasal Cannula 3.0 05/15/16 14:42 81 18 189/102 05/15/16 13:04 94 Nasal Cannula 2.0 05/15/16 13:04 80 05/15/16 12:56 94 Nasal Cannula 2.0 05/15/16 12:56 94 Nasal Cannula 2.0 05/15/16 12:45 37.0 87 18 139/91 84 Room Air General Appearance: WELL-APPEARING, NO APPARENT DISTRESS Head: NORMOCEPHALIC, ATRAUMATIC Eyes: PERRLA, NO DISCHARGE, EOMI, SCLERAE NORMAL, CONJUNCTIVAE NORMAL ENT: NORMAL EAR EXAM, NORMAL NASAL EXAM, NORMAL MOUTH EXAM, NORMAL THROAT EXAM , NORMAL DENTAL EXAM, NORMAL SINUS EXAM Neck: NORMAL RANGE OF MOTION, NO TENDERNESS, TRACHEA MIDLINE, NO STRIDOR Respiratory: other (decreased breath sounds with dullness to percussion greatest in the left lower lobe posterior subsegment, Pleurx catheter in place no active bleeding) Cardiovasular: REGULAR RATE/RHYTHM, NORMAL S1S2, NO M/G/R, NO MURMUR, NO GALLOP Abdomen: NON TENDER, NORMAL BOWEL SOUNDS, NO REBOUND, NO MASSES, NO GUARDING, NO ORGANOMEGALY, NORMAL RECTAL EXAM, NO HEMORRHOIDS, NO HERNIA Genitourinary - Female: EXTERNAL GENITALIA NORMAL Back: NORMAL INSPECTION, NO MIDLINE TENDERNESS, NO CVA TENDERNESS, NO PARAVERTEBRAL TTP Upper Extremities: NO EDEMA, NO DEFORMITY, NORMAL ROM Lower Extremities: NORMAL ROM Pulses: carotid (R) (2+), carotid (L) (2+), dorsalis pedis (R) (2+), dorsalis pedis (L) (2+) Neuro: ALERT, ORIENTED x 3, NORMAL MOTOR EXAM, NORMAL SENSATION, NORMAL CEREBELLAR EXAM, NORMAL SPEECH Reflexes: biceps (R) (2+), bicpes (L) (2+) Babinski Testing: right (downgoing), left (downgoing) Psychiatric: NORMAL AFFECT, NO SUICIDAL IDEATION Diagnostics Labs Results Past 24 Hours Test 05/15/16 13:10 05/16/16 07:11 05/16/16 08:00 Range/Units White Blood Count 10.60 10.13 4.8-10.8 K/uL Red Blood Count 4.10 3.89 4.2-5.4 M/uL Hemoglobin 11.7 11.4 12.0-16.0 g/dL Hematocrit 34.7 33.8 37-47 % Mean Corpuscular Volume 84.6 86.9 80-100 fL Mean Corpuscular Hemoglobin 28.5 29.3 25-34 pg Mean Corpuscular Hemoglobin Concent 33.7 33.7 32-36 g/dl Platelet Count 312 326 130-400 K/uL Mean Platelet Volume 8.0 8.3 7.4-10.4 fL Neutrophils (%) (Auto) 83.9 % Lymphocytes (%) (Auto) 8.2 % Monocytes (%) (Auto) 3.7 % Eosinophils (%) (Auto) 3.5 % Basophils (%) (Auto) 0.4 % Neutrophils # (Auto) 8.90 1.4-6.5 K/uL Lymphocytes # (Auto) 0.87 1.2-3.4 K/uL Monocytes # (Auto) 0.39 0.11-0.59 K/uL Eosinophils # (Auto) 0.37 0-0.5 K/uL Basophils # (Auto) 0.04 0-0.2 K/uL RDW Standard Deviation 48.2 49.8 36.4-46.3 fL RDW Coefficient of Variation 15.5 15.7 11.5-14.5 % Immature Granulocyte % (Auto) 0.3 % Immature Granulocyte # (Auto) 0.03 0.00-0.02 K/uL Prothrombin Time 13.1 9.0-12.0 SECONDS Prothromb Time International Ratio 1.2 0.9-1.1 Activated Partial Thromboplast Time 32.7 21.0-31.0 SECONDS Partial Thromboplastin Ratio 1.3 Sodium Level 134 135 136-145 mmol/L Potassium Level 2.9 3.9 3.5-5.1 mmol/L Chloride Level 97 100 98-107 mmol/L Carbon Dioxide Level 28 24 21-32 mmol/L Anion Gap 9.0 11.0 3-11 mmol/L Blood Urea Nitrogen 11 5 7-18 mg/dl Creatinine 0.62 0.44 0.60-1.20 mg/dl Est Creatinine Clear Calc Drug Dose 68.2 96.1 ml/min Estimated GFR () 105.9 118.5 Estimated GFR (Non- 91.4 102.3 BUN/Creatinine Ratio 17.3 10.9 10-20 Random Glucose 101 92 70-99 mg/dl Calcium Level 8.1 8.5 8.5-10.1 mg/dl Magnesium Level 1.9 1.8 1.8-2.4 mg/dl Total Bilirubin 0.5 0.2-1 mg/dl Direct Bilirubin 0.2 0-0.2 mg/dl Aspartate Amino Transf (AST/SGOT) 9 15-37 U/L Alanine Aminotransferase (ALT/SGPT) 13 12-78 U/L Alkaline Phosphatase 62 45-117 U/L Total Creatine Kinase 33 26-192 U/L Creatine Kinase MB 0.7 0.5-3.6 ng/ml Creatine Kinase MB Ratio 2.1 0-3.0 Troponin I < 0.015 0-0.045 ng/ml Pro-B-Type Natriuretic Peptide 1011 0-900 pg/ml Total Protein 6.9 6.4-8.2 gm/dl Albumin 2.6 3.4-5.0 gm/dl Lipase 113 73-393 U/L Lactate Dehydrogenase 159 84-246 U/L Pleural Fluid Glucose 83 mg/dl Microbiology Results 3/13/17 Blood Culture, Received Pending 05/15/16 Blood Culture, Received Pending 05/16/16 Fungal Smear, Received Pending 05/16/16 Fungal Culture, Received Pending 05/16/16 Acid Fast Stain, Received Pending 05/16/16 Mycobacterial Culture, Received Pending 05/16/16 Gram Stain, Received Pending 05/16/16 Bacterial Culture, Received Pending Diagnostic Radiology CTA (05/15/2016) compared to 03/16/2016 1. negative for pulmonary embolus 2. Progressive of left pleural effusion 3. Progressive LLL left lower lobe consolidative change 4. emphysematous and interstitial change. 6. mucous plugging bilaterally 7. new involvement of the pleural sack associated in the Lingular region EKG Old septal infarct and no signs of acute disease Impression Assessment and Plan 70-year-old female with metastatic squamous cell carcinoma of the lung, pleurisy and pleural effusion #1 Pleurisy: This time we'll initiate Toradol therapy and monitor response to Pleurx catheter placement. Chest pain most likely secondary to pleurisy as recent CT compared to one from March 2016 shows progressive pleural effusion with pleural involvement just below the left breast. I'm trying to contact Dr. Kelly Agee from the radiation oncology Department to determine if localize radiation to the pleura could benefit our patient. #2 Pleural Effusion: Thoracic surgery is evaluate the patient placed Pleurx catheter at this time. Lab results pending. #3 Pneumonia vs. Empyema: Follow-up on pleural fluid evaluation and if within normal limits suggest we discontinue any antibiotic treatment at this time.
[2016-05-16] MEDS ORDERED: KETOROLAC TROMETHAMINE 30 MG/ML VIAL IV STA (09:17)
[2016-05-16] MEDS ORDERED: KETOROLAC TROMETHAMINE 60 MG/2 ML VIAL IM STA (09:17)
[2016-05-16] MEDS ORDERED: KETOROLAC TROMETHAMINE 15 MG/ML VIAL IM PRN (09:30)
[2016-05-16 10:05] LABS: PLEURAL FLUID APPEARANCE BLOODY; PLEURAL FLUID COLOR RED; PLEURAL FLUID SOURCE LEFT LUNG; PLEURAL FLUID WBC (A) 3759 /uL
--- NOTE | 2016-05-16 10:39 | SURGICAL CONSULTATION ---
DATE OF CONSULTATION: 05/16/2016 Ms. Stewart is a patient who is normally followed by Dr. Bakari Chávez from [facility] oncology. The patient has a large left pleural effusion and is symptomatic. I was asked to see her to evaluate her for this fluid. Given her symptoms and the fact she has stage IV squamous cell carcinoma of the lung with bone metastasis, I feel that we should treat her with a PleurX catheter. I discussed this in detail with the patient and her daughter and her son. They were all in agreement. We are going to put this in later today. For specifics of the history and physical, please refer to Mr. Feliz Beard's full consultation.
[2016-05-16 10:59] LABS: PLEURAL FLUID MONONUC RELAT 54.4 %; PLEURAL FLUID POLYNUC 45.6 %
--- NOTE | 2016-05-16 11:47 | Progress Note ---
Internal Med Progress Note Date of Service: May 16, 2016. Provider Documentation: SUBJECTIVE: Patient is seen and examined at bedside. Patient states her SOB is much improved. Still has left sided pleuritic pain. Family at bedside. OBJECTIVE: Vital Signs-as noted below Physical Exam: Vitals signs as noted above General Appearance:Moderately built and nourished, no apparent distress Head: normocephalic, Atraumatic Eyes: normal inspection, EOMI, PERRLA Neck: supple, Trachea midline Respiratory/Chest: Decreased breath sounds, CTA, No accessory muscle use Cardiovascular: S1, S2, No murmur Abdomen/GI:Soft, Non tender, Bowel sounds present Extremities/Musculoskelatal:normal inspection, no edema Neurologic/Psych:AAOX3, grossly no focal neurological deficits Skin: normal color, warm Lab data as noted below. ASSESSMENT & PLAN: ACUTE RESPIRATORY FAILURE WITH HYPOXIA: SECONDARY TO L SIDED PNEUMONIA/PLEURAL EFFUSION Patient presented with worsening SOB, dry cough and left sided pleuritic pain Pleural effusion likely malignant in origin S/P Left thoracentesis and Pleurx catheter placement CTA: L sided pneumonia and progressing pleural effusion; no evidence of PE Continue Oxygen support, IV antibiotics, Bronchodilators Appreciate Pulmonary input Continue Toradol per Pulm Radiation oncology consulted for possible palliative radiation therapy FU blood culture, Pleural fluid studies: Will DC antibiotics if negative Appreciate CT surgery help HYPOKALEMIA Resolved Continue to monitor STAGE IV METASTATIC SQUAMOUS CELL LUNG CA s/p palliative radiation to R hip currently undergoing immunotherapy with Keytruda every 3 weeks (last tx ) consulted hem/onc and radiation oncology HTN BP better Continue losartan and metoprolol Continue to monitor DVT PROPHYLAXIS Lovenox SQ CODE STATUS DNR DISPOSITION: To be determined Vital Signs: Date Time Temp Pulse Resp B/P Pulse Ox O2 Delivery O2 Flow Rate FiO2 05/16/16 12:00 Nasal Cannula 3.0 05/16/16 11:14 36.5 86 18 144/86 97 Nasal Cannula 3.0 05/16/16 11:09 86 18 98 Nasal Cannula 3.0 05/16/16 08:30 Nasal Cannula 3.0 05/16/16 07:22 90 18 97 Nasal Cannula 3.0 05/16/16 07:19 36.9 89 18 176/96 97 Nasal Cannula 3.0 05/16/16 04:00 94 Nasal Cannula 3.0 Humidified Oxygen 05/16/16 03:51 36.8 87 18 156/90 96 Nasal Cannula 3.0 05/16/16 00:00 94 Nasal Cannula 3.0 Humidified Oxygen 05/16/16 00:00 36.5 88 20 170/96 94 Nasal Cannula 3.0 05/15/16 21:49 36.3 87 18 162/90 96 Nasal Cannula 3.0 05/15/16 20:00 36.3 87 18 162/90 96 Nasal Cannula 3.0 Humidified Oxygen 05/15/16 17:40 82 22 152/95 97 Nasal Cannula 3.0 05/15/16 17:02 75 20 173/89 98 Nasal Cannula 2.0 05/15/16 17:01 78 05/15/16 15:29 87 22 167/95 97 Nasal Cannula 3.0 05/15/16 14:42 81 18 189/102 05/15/16 13:04 94 Nasal Cannula 2.0 05/15/16 13:04 80 05/15/16 12:56 94 Nasal Cannula 2.0 05/15/16 12:56 94 Nasal Cannula 2.0 05/15/16 12:45 37.0 87 18 139/91 84 Room Air Lab Results: Results Past 24 Hours Test 05/15/16 13:10 05/16/16 07:11 05/16/16 08:00 Range/Units White Blood Count 10.60 10.13 4.8-10.8 K/uL Red Blood Count 4.10 3.89 4.2-5.4 M/uL Hemoglobin 11.7 11.4 12.0-16.0 g/dL Hematocrit 34.7 33.8 37-47 % Mean Corpuscular Volume 84.6 86.9 80-100 fL Mean Corpuscular Hemoglobin 28.5 29.3 25-34 pg Mean Corpuscular Hemoglobin Concent 33.7 33.7 32-36 g/dl Platelet Count 312 326 130-400 K/uL Mean Platelet Volume 8.0 8.3 7.4-10.4 fL Neutrophils (%) (Auto) 83.9 % Lymphocytes (%) (Auto) 8.2 % Monocytes (%) (Auto) 3.7 % Eosinophils (%) (Auto) 3.5 % Basophils (%) (Auto) 0.4 % Neutrophils # (Auto) 8.90 1.4-6.5 K/uL Lymphocytes # (Auto) 0.87 1.2-3.4 K/uL Monocytes # (Auto) 0.39 0.11-0.59 K/uL Eosinophils # (Auto) 0.37 0-0.5 K/uL Basophils # (Auto) 0.04 0-0.2 K/uL RDW Standard Deviation 48.2 49.8 36.4-46.3 fL RDW Coefficient of Variation 15.5 15.7 11.5-14.5 % Immature Granulocyte % (Auto) 0.3 % Immature Granulocyte # (Auto) 0.03 0.00-0.02 K/uL Prothrombin Time 13.1 9.0-12.0 SECONDS Prothromb Time International Ratio 1.2 0.9-1.1 Activated Partial Thromboplast Time 32.7 21.0-31.0 SECONDS Partial Thromboplastin Ratio 1.3 Sodium Level 134 135 136-145 mmol/L Potassium Level 2.9 3.9 3.5-5.1 mmol/L Chloride Level 97 100 98-107 mmol/L Carbon Dioxide Level 28 24 21-32 mmol/L Anion Gap 9.0 11.0 3-11 mmol/L Blood Urea Nitrogen 11 5 7-18 mg/dl Creatinine 0.62 0.44 0.60-1.20 mg/dl Est Creatinine Clear Calc Drug Dose 68.2 96.1 ml/min Estimated GFR () 105.9 118.5 Estimated GFR (Non- 91.4 102.3 BUN/Creatinine Ratio 17.3 10.9 10-20 Random Glucose 101 92 70-99 mg/dl Calcium Level 8.1 8.5 8.5-10.1 mg/dl Magnesium Level 1.9 1.8 1.8-2.4 mg/dl Total Bilirubin 0.5 0.2-1 mg/dl Direct Bilirubin 0.2 0-0.2 mg/dl Aspartate Amino Transf (AST/SGOT) 9 15-37 U/L Alanine Aminotransferase (ALT/SGPT) 13 12-78 U/L Alkaline Phosphatase 62 45-117 U/L Total Creatine Kinase 33 26-192 U/L Creatine Kinase MB 0.7 0.5-3.6 ng/ml Creatine Kinase MB Ratio 2.1 0-3.0 Troponin I < 0.015 0-0.045 ng/ml Pro-B-Type Natriuretic Peptide 1011 0-900 pg/ml Total Protein 6.9 6.4-8.2 gm/dl Albumin 2.6 3.4-5.0 gm/dl Lipase 113 73-393 U/L Lactate Dehydrogenase 159 84-246 U/L Hepatitis C Antibody Screen NEG NEG Pleural Fluid Source LEFT LUNG Pleural Fluid Color RED Pleural Fluid Appearance BLOODY Pleural Fluid WBC 3759 /uL Pleural Fluid RBC 42755 /uL Pleural Fluid Polynuclear WBCs % 45.6 % Pleural Fluid Mononuclear WBCs % 54.4 % Pleural Fluid Total Protein 4.0 g/dl Pleural Fluid LDH 132 IU Pleural Fluid Glucose 83 mg/dl Pleural Fluid Amylase 46 U/L Microbiology Results 05/15/16 Blood Culture, Received Pending 05/15/16 Blood Culture, Received Pending 05/16/16 Fungal Smear - Final, Resulted 05/16/16 Fungal Culture, Resulted Pending 05/16/16 Acid Fast Stain, Received Pending 05/16/16 Mycobacterial Culture, Received Pending 05/16/16 Gram Stain - Final, Resulted 05/16/16 Bacterial Culture, Resulted Pending
--- NOTE | 2016-05-16 11:54 | OPERATIVE REPORT ---
DATE OF OPERATION: 05/16/2016 PREOPERATIVE DIAGNOSIS: Large left pleural effusion. POSTOPERATIVE DIAGNOSIS: Same. PROCEDURE: Insertion of left PleurX catheter. SURGEON: Dr. Doan. CRANE FOLLOWER: FRANCISCO Mcclendon. ANESTHESIA: Local. SPECIFICS OF PROCEDURE: The patient in her right lateral decubitus position. The chest was prepped and draped in the usual sterile fashion. We had marked the interspace with the ultrasound, where there was a good window for fluid. Skin wheal was raised with 25-gauge needle, 1% Xylocaine. A large bore needle was used to anesthetize the deeper subcutaneous tissues and went into the pleural cavity. There was free flowing fluid obtained. A guidewire was inserted and needle removed. The guidewire was left in place. About 10 cm anterior to this, another skin wheal was raised with 25-gauge needle, 1% Xylocaine. A long needle was used to anesthetize subcutaneous tissues between these 2 incisions and with 1% Xylocaine without epinephrine. A tunneler was attached to the PleurX catheter and dragged from the anterior, posterior incision and the tunneler removed. Introducer sheath with an inner cannula was slid over the guidewire posteriorly. Inner cannula and guidewire removed and PleurX catheter was inserted into the peel-away sheath, which was removed. Two separate 3-0 silk sutures used to close the posterior incision and 3-0 silk suture was used anteriorly to anchor the catheter to the skin. Approximately 1050 mL of a tea-colored fluid was drained. She tolerated it quite well, although she had reexpansion coughing and pain. She felt her pain was better than when she had entered the hospital. She is much less short of breath. Appropriate studies were sent. Chest x-ray shows good position of the PleurX. I attest to the content of the Intraoperative Record and any orders documented therein. Any exceptio ns are noted below.
--- NOTE | 2016-05-16 12:04 | Medical Consult ---
Consultation Date of Consultation: May 16, 2016. Attending Physician: Tanner Martin MD Reason for Consultation: Increasing left pleural effusion in the setting of Stage IV lung cancer History of Present Illness Ms. Stewart is a 70 yo female known to the consulting medical oncology service, patient of Dr. Salcido. She is diagnosed with stage IV Squamous cell carcinoma, high PD-L1 expression, with extensive mets to liver and bone and adrenal met. She had a bronchoscopy performed on 02/03/2016; subcarinal lymph node revealed squamous cell carcinoma. She was staged as TXN3 M1b. She was evaluated by Dr. Blair for her metastatic disease affecting her left femoral neck, but surgical intervention was not advised due to low likelihood of pathologic fracture. She finished her palliative radiation 04/10/16-04/21/2016 to right sacral ala lesion. She was hospitalized at [facility] in March with a small L pleural effusion and pneumonia. The pleural effusion was too small for surgical intervention ; pneumonia treated with antibiotic. Her last CT scan from 04/24/16 (after 1 cycle of pembrolizumab) revealed the left lower lobe squamous cell carcinoma similar to appearance from CT in March 2016. Persistent mediastinal adenopathy concerning for metastatic disease, unchanged. Slight interval decrease in the size of the left adrenal gland lesion. Worsening metastatic disease within abdomen as evidenced by increasing upper abdominal adenopathy and increase in size and number of hepatic lesions. Osseous metastatic disease within pelvis. Lytic changes noted of the posterior cortex of the proximal left femur as well of the right sacrum. Left pleural effusion was present. She received 2 cycles of pembrolizumab- last infusion 04/26/16. She was treated for possible post-obstructive pneumonia with Levaquin. She received palliative RT To right sacral ala area. She is also on supportive Zometa- received 2 infusions to date, last infusion 05/03/16. She presented to the emergency room at [facility] yesterday due to shortness of breath x4 days, worse with exertion. She spoke with Dr. Chávez yesterday who recommended that she reported to the ER. She also reports dry cough, wheezing and rib pain of the anterior lower left side (intermittent) . She was taking hydrocodone at home with no relief. In the ER, pt was hypoxic at 84% on room air. She is now on 3L O2. the patient was evaluated by thoracic surgery today and a pleurocentesis with Pleurx catheter placement was performed. 1 to 1.5 L drain today. Stains/cultures, cytology pending at this time. Pleural fluid analysis with high RBC count. Pulmonary has consulted with the patient. Pulmonary is contacting Radiation Oncology to see if palliative RT to the left pleural space could help palliate the patient. She has been started on Toradol for pain in addition to hydrocodone. She has been started on empiric Levaquin for possible infection involving left lower lobe by imaging. Additional history obtained from the patient at bedside. The patient reports that her left anterior lateral chest pain is not much improved since the pleurocentesis with PleurX catheter placement. Her pain is adequately controlled however with Toradol started today in addition to hydrocodone. She states her dyspnea has much improved since the procedure. She reports that her appetite in general has decreased with her advanced cancer diagnosis, citing a lot of food is an appetite is ink. She is not having nausea. She reports being constipated at this time, likely due to increase of use of narcotic medications. She does have Colace and MiraLax. She has not had bloody or black stools. She states her right sacral pain is much improved since she completed radiation. She does have pain of her left femur intermittently that will radiate to her knee. She has in addition to Dr. Blair consult id with a [facility] spine physician here in [place] who has offered her possible palliative yamileth placement if she develops significant, consistent pain. Past Medical/Surgical History Medical Problems: (1) History of lung cancer Status: Acute (2) Hypokalemia Status: Acute (3) Hypoxia Status: Acute (4) Malignant pleural effusion Status: Acute (5) Pleural effusion Status: Acute (6) Pneumonia Status: Acute (7) Right flank pain Status: Acute Family History Cancer Heart disease Hypertension Lung disease Social History Smoking Status: Former Smoker Alcohol Use: none Drug Use: none Occupation Status: retired Allergies Coded Allergies: Latex (Verified Allergy, Mild, Itching, 02/14/16) Nitrofurantoin (Verified Allergy, Unknown, ., 02/14/16) Sulfamethoxazole w/Trimethoprim (Verified Allergy, Unknown, ., 02/14/16) Current Inpatient Medications Current Inpatient Medications Medications (Trade) Dose Ordered Sig/Lindsay Route Start Time Stop Time Status Last Admin Dose Admin Ioversol (Optiray 320) 125 ml UD PRN IV 05/15/16 13:15 05/19/16 13:14 Enoxaparin Sodium (Lovenox Inj) 40 mg Q24H SC 05/15/16 21:00 06/14/16 20:59 Acetaminophen (Tylenol Tab) 650 mg Q4H PRN PO 05/15/16 17:15 06/14/16 17:14 05/15/16 21:03 650 MG Ondansetron HCl (Zofran Inj) 4 mg Q6H PRN IV 05/15/16 17:15 06/14/16 17:14 Nitroglycerin 0.4 mg 0.4 mg UD PRN SL 05/15/16 17:15 06/14/16 17:14 Levofloxacin/Prmx (Levaquin / D5W/ Premixed D5W) 150 ml @ 100 mls/hr DAILY@1600 IV 05/16/16 16:00 05/22/16 15:59 Albuterol/ Ipratropium (Duoneb) 3 ml QIDR INH 05/15/16 20:00 06/14/16 19:59 05/16/16 11:09 3 ML Docusate Sodium (coLACE CAP) 100 mg BID PO 05/15/16 21:00 06/14/16 20:59 05/16/16 09:04 100 MG Fexofenadine HCl (Delores Tab) 180 mg DAILY PO 05/16/16 09:00 06/15/16 08:59 05/16/16 09:04 180 MG Acetaminophen/ Hydrocodone Bitart ([place] 5/325 Tab) 1 tab Q6 PRN PO 05/15/16 17:30 05/29/16 17:29 05/16/16 09:03 1 TAB Losartan Potassium (coZAAR TAB) 50 mg DAILY PO 05/16/16 09:00 06/15/16 08:59 05/16/16 09:04 50 MG Metoprolol Succinate (Toprol Xl Tab) 100 mg DAILY PO 05/16/16 09:00 06/15/16 08:59 05/16/16 09:03 100 MG Tiotropium [place] (Spiriva Handihaler Inhaler) 1 puff DAILY INH 05/16/16 09:00 06/15/16 08:59 05/16/16 09:02 1 PUFF Acetaminophen (Tylenol Tab) 500 mg HS PRN PO 05/15/16 18:30 06/14/16 18:29 05/16/16 00:07 500 MG Cholecalciferol (Vitamin D Tab) 2,000 inter.unit DAILY PO 05/16/16 09:00 06/15/16 08:59 05/16/16 09:03 2,000 INTER.UNIT Multivitamins/ Minerals (Multivitamin W/ Minerals Tab) 1 tab DAILY PO 05/16/16 09:00 06/15/16 08:59 05/16/16 09:03 1 TAB Diphenhydramine HCl (Benadryl Cap) 25 mg HS PRN PO 05/15/16 18:30 06/14/16 18:29 05/16/16 00:07 25 MG Ondansetron HCl (Zofran Odt) 4 mg Q8H PRN PO 05/15/16 20:45 06/14/16 20:44 Morphine Sulfate (MoRPHine SULFATE INJ) 2 mg Q2H PRN IV 05/16/16 08:15 05/30/16 08:14 Ketorolac Tromethamine (Toradol Inj) 15 mg Q6H IV. 05/16/16 16:00 05/21/16 15:59 Review of Systems Constitutional: No chills, No fever, No sweats Eyes: No worsening of vision Respiratory: + shortness of breath (improved), No cough, No wheezing Cardiovascular: + chest pain (see HPI) Abdomen: + constipation, No GI bleeding, No nausea, No pain, No vomiting Musculoskeletal: + joint pain (see HPI) Physical Exam Date Time Temp Pulse Resp B/P Pulse Ox O2 Delivery O2 Flow Rate FiO2 05/16/16 11:14 36.5 86 18 144/86 97 Nasal Cannula 3.0 05/16/16 11:09 86 18 98 Nasal Cannula 3.0 05/16/16 08:30 Nasal Cannula 3.0 05/16/16 07:22 90 18 97 Nasal Cannula 3.0 05/16/16 07:19 36.9 89 18 176/96 97 Nasal Cannula 3.0 05/16/16 04:00 94 Nasal Cannula 3.0 Humidified Oxygen 05/16/16 03:51 36.8 87 18 156/90 96 Nasal Cannula 3.0 05/16/16 00:00 94 Nasal Cannula 3.0 Humidified Oxygen 05/16/16 00:00 36.5 88 20 170/96 94 Nasal Cannula 3.0 05/15/16 21:49 36.3 87 18 162/90 96 Nasal Cannula 3.0 05/15/16 20:00 36.3 87 18 162/90 96 Nasal Cannula 3.0 Humidified Oxygen 05/15/16 17:40 82 22 152/95 97 Nasal Cannula 3.0 05/15/16 17:02 75 20 173/89 98 Nasal Cannula 2.0 05/15/16 17:01 78 05/15/16 15:29 87 22 167/95 97 Nasal Cannula 3.0 05/15/16 14:42 81 18 189/102 05/15/16 13:04 94 Nasal Cannula 2.0 05/15/16 13:04 80 05/15/16 12:56 94 Nasal Cannula 2.0 05/15/16 12:56 94 Nasal Cannula 2.0 05/15/16 12:45 37.0 87 18 139/91 84 Room Air General Appearance: WD/WN, no apparent distress ENT: hearing grossly normal Respiratory/Chest: lungs clear, no respiratory distress, no accessory muscle use Cardiovascular: regular rate, rhythm, no edema, + pertinent finding (+ tender to palpation of anterolateral left ribs 8-10) Abdomen/GI: non tender, soft Extremities/Musculoskelatal: no calf tenderness, no pedal edema Neurologic/Psych: alert, oriented x 3 Skin: normal color, warm/dry Laboratory Results 05/15/16 13:10 Red Blood Count 4.10, Mean Corpuscular Volume 84.6, Mean Corpuscular Hemoglobin 28.5, Mean Corpuscular Hemoglobin Concent 33.7, Mean Platelet Volume 8.0, Neutrophils (%) (Auto) 83.9, Lymphocytes (%) (Auto) 8.2, Monocytes (%) (Auto) 3.7, Eosinophils (%) (Auto) 3.5, Basophils (%) (Auto) 0.4, Neutrophils # (Auto) 8.90, Lymphocytes # (Auto) 0.87, Monocytes # (Auto) 0.39, Eosinophils # (Auto) 0.37, Basophils # (Auto) 0.04 05/16/16 07:11 05/15/16 13:10 05/16/16 07:11 Test 05/15/16 13:10 05/16/16 07:11 05/16/16 08:00 White Blood Count 10.60 K/uL (4.8-10.8) Red Blood Count 4.10 M/uL (4.2-5.4) 3.89 M/uL (4.2-5.4) Hemoglobin 11.7 g/dL (12.0-16.0) Hematocrit 34.7 % (37-47) Mean Corpuscular Volume 84.6 fL (80-100) 86.9 fL (80-100) Mean Corpuscular Hemoglobin 28.5 pg (25-34) 29.3 pg (25-34) Mean Corpuscular Hemoglobin Concent 33.7 g/dl (32-36) 33.7 g/dl (32-36) Platelet Count 312 K/uL (130-400) Mean Platelet Volume 8.0 fL (7.4-10.4) 8.3 fL (7.4-10.4) Neutrophils (%) (Auto) 83.9 % Lymphocytes (%) (Auto) 8.2 % Monocytes (%) (Auto) 3.7 % Eosinophils (%) (Auto) 3.5 % Basophils (%) (Auto) 0.4 % Neutrophils # (Auto) 8.90 K/uL (1.4-6.5) Lymphocytes # (Auto) 0.87 K/uL (1.2-3.4) Monocytes # (Auto) 0.39 K/uL (0.11-0.59) Eosinophils # (Auto) 0.37 K/uL (0-0.5) Basophils # (Auto) 0.04 K/uL (0-0.2) RDW Standard Deviation 48.2 fL (36.4-46.3) 49.8 fL (36.4-46.3) RDW Coefficient of Variation 15.5 % (11.5-14.5) 15.7 % (11.5-14.5) Immature Granulocyte % (Auto) 0.3 % Immature Granulocyte # (Auto) 0.03 K/uL (0.00-0.02) Prothrombin Time 13.1 SECONDS (9.0-12.0) Prothromb Time International Ratio 1.2 (0.9-1.1) Activated Partial Thromboplast Time 32.7 SECONDS (21.0-31.0) Partial Thromboplastin Ratio 1.3 Anion Gap 9.0 mmol/L (3-11) 11.0 mmol/L (3-11) Est Creatinine Clear Calc Drug Dose 68.2 ml/min 96.1 ml/min Estimated GFR () 105.9 118.5 Estimated GFR (Non- 91.4 102.3 BUN/Creatinine Ratio 17.3 (10-20) 10.9 (10-20) Calcium Level 8.1 mg/dl (8.5-10.1) 8.5 mg/dl (8.5-10.1) Magnesium Level 1.9 mg/dl (1.8-2.4) 1.8 mg/dl (1.8-2.4) Total Bilirubin 0.5 mg/dl (0.2-1) Direct Bilirubin 0.2 mg/dl (0-0.2) Aspartate Amino Transf (AST/SGOT) 9 U/L (15-37) Alanine Aminotransferase (ALT/SGPT) 13 U/L (12-78) Alkaline Phosphatase 62 U/L (45-117) Total Creatine Kinase 33 U/L (26-192) Creatine Kinase MB 0.7 ng/ml (0.5-3.6) Creatine Kinase MB Ratio 2.1 (0-3.0) Troponin I < 0.015 ng/ml (0-0.045) Pro-B-Type Natriuretic Peptide 1011 pg/ml (0-900) Total Protein 6.9 gm/dl (6.4-8.2) Albumin 2.6 gm/dl (3.4-5.0) Lipase 113 U/L (73-393) Lactate Dehydrogenase 159 U/L (84-246) Hepatitis C Antibody Screen NEG (NEG) Pleural Fluid Source LEFT LUNG Pleural Fluid Color RED Pleural Fluid Appearance BLOODY Pleural Fluid WBC 3759 /uL Pleural Fluid RBC 45801 /uL Pleural Fluid Polynuclear WBCs % 45.6 % Pleural Fluid Mononuclear WBCs % 54.4 % Pleural Fluid Total Protein 4.0 g/dl Pleural Fluid LDH 132 IU Pleural Fluid Glucose 83 mg/dl Pleural Fluid Amylase 46 U/L CTA from 05/15/2016: Progressive left pleural effusion. Left lower lobe atelectasis. Study negative for pulmonary embolus. Mucus plug in the lung bases. Findings suggesting component of mild pulmonary hypertension. Progressive left lower lobe consolidative change. Baseline emphysematous interstitial change. Chest x-ray from 05/15/2016: Heart is enlarged and atherosclerotic calcification of thoracic aorta noted. Pulmonary vasculature not congested. Enlargement of central pulmonary arteries indicates pulmonary artery hypertension. Advanced emphysema and chronic interstitial thickening. Left pleural effusion with left basilar consolidation. No pneumothorax. Chest ultrasound from 05/15/2016: 600 ml left effusion. No significant right effusion. Chest x-ray from 05/06/2016: Interval placement of left basilar drainage catheter. Interval decrease in size of left-sided pleural effusion. No evidence of pneumothorax. Assessment & Plan 1. Increasing left pleural effusion in the setting of Stage IV SCC of LLL with mets to bone, liver and left adrenal, s/p 2 cycles pembrolizumab as of 04/26/16- s/p pleurocentesis with PleurX catheter placement today. Patient has experienced improvement in dyspnea, but not pain of the site. Pulmonology consulted RO to consider palliative RT to pleura for pain control. Dr. Rozina Agee has examined the patient and is agreeable with this plan. Discussed with Dr. Chávez about possible other etiology of pain not improving, such as pathologic fracture of lower left ribs, not seen on current imaging studies available for review. She would like to obtain a bone scan, this was discussed with Dr. Martin and he was agreeable, so order has been placed. She will remain on PRN Toradol and hydrocodone/APAP for pain control. Patient is being covered with Levaquin for possible LLL consolidation; patient has had post-obstructive PNA more recently with her advanced cancer diagnosis, so oncology is agreement with coverage with Levaquin. Discussed with patient that the increase of known left pleural effusion does not necessarily indicate treatment failure. Dr. Chávez will discuss with patient about further treatment on current agent, follow up restaging. 2. Constipation- likely opioid induced as she has increased her use of narcotic pain medicine more recently with left chest pain. She is on Colace. Consider addition of Miralax for constipation-defer to hospitalist team. Attending Note 05/17/16 I discussed with Jeanine Browning PA-C and recommended pulmonary consult and bone scan. I agree with History and physical I personally saw and examined the patient 05/17/16 7:15am and discussed with the patient and her son Dionicio Stewart at bedside. 70 year old female with stage IV squamous cell carcinoma of lung with extensive mets to liver and also has adrenal and bone metastasis. She recently had palliative RT to the right hip. She received second cycle of pembrolizumab on . Patient states that she was feeling well until Sunday she developed pain in the left chest wall and increased cough and dyspnea. She denies any hemoptysis. She reports that pain is worse with certain movements and states that at home she felt a popping sensation sometimes in the left rib cage with certain movements. She was sent to ER for evaluation and had CT chest angiogram which did not show any evidence for PE, but showed worsening left pleural effusion. She was hypoxic on admission and is on supplemental oxygen via [place]. She was evaluated by CT surgery and has left pleurex catheter. Pleural effusion was bloody. This morning she feels improved. She states that she does not have any pain currently, but with certain movements she gets pain on the left lower check wall. She also has a discomfort from the pleurx catheter. She still has cough but feels that it has improved. She denies any headache. She states that appetite fluctuates but overall has been good. She states that for about a week now she also notice aching on and off in the left hip/femur area. She denies any falls or injury or swelling. BP 157/83 P95 T 36.8 O2 SAT 96% 3L BP138/83 T 36.9 O2 sat 94/95 Gen: well developed female in no acute distress, ill appearing HEENT: Anicteric no pallor Lungs: decreased BS left base +pleurX, few expiratory wheezes, right lung clear CV: S1 S2 RRR Abd: soft NT/ND +BS Ext: no edema, nontender Labs: reviewed CT chest: reviewed Impression: 70 year old female with stage IV squamous cell carcinoma of lung admitted with left sided chest wall pain and hypoxia, increase in cough and dyspnea on exertion. S/P left pleurex catheter for increase in pleural effusion - most likely malignant effusion. 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 She is due for pembrolizumab treatment today but recommend hold treatment in the acute setting with her respiratory symptoms and pain, also her performance status has declined again. Recommend pain control and check bone scan - evaluate for progression of bone mets or any rib lesions on the left. Given increase in her symptoms and declining performance status and increase in the pleural effusion this is concerning for progression. I discussed options of palliative care consult as she has extensive metastases and her cancer is not curable, also her current PFS is poor, ECOG PS3, but the patient and her son declined palliative care consult at this time. Check with radiology to compare this CT scan to her more recent CT scan from [facility]. Would complete the course of antibiotic in case of post-obstructive PNA as well. Follow up in the office upon discharge Thank you for consult Please call if questions
--- NOTE | 2016-05-16 13:16 | Radiation Oncology Consult ---
Radiation Oncology Consult Date / Reason May 16, 2016. [facility] Medical Oncologist: Dr. Bakari Chávez Radiation Oncologist: Dr. Kelly Agee Surgeon: Dr. Martín Doan Other Providers: Dr. Alexi White Diagnosis (1) Lung cancer Onset Date: 02/03/2016 Permanent Comment: Development of rib pain CT findings of metastatic disease, lung lesion and lymphadenopathy Status post bronchoscopy and biopsy Subcarinal node revealing squamous cell carcinoma 02/03/2016 Staging studies revealing bone, adrenal, and liver metastases Stage TX N3 N1b Initiation of immunotherapy with Keytruda Pain in the right SI area. Status post completion of radiation therapy to the right hip 04/21/2016 received 3000 cGy Last Edited By: Yanely White on Apr 28, 2016 09:50 History of Present Illness Ms. 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 The tumor was evaluated and was found to be PD-L1 expressive saw the patient has been treated with Keytruda underneath the supervision of Dr. Bakari Chávez. More recently, the patient started to develop significant pain in her right hip/SI joint. The patient does that she has had chronic pain and therefore very long however the pain has got significantly so more severe recently. The patient underwent an MRI of the hip on 04/04/2016 which revealed: "IMPRESSION: Findings most likely related to a metastatic disease involving the right sacral ala as well as the left acetabular roof and the left lesser trochanter and proximal diaphysis and the intertrochanteric area. The right hip does not show evidence of focal bony lesions. There is questionably some minimal cartilage irregularity of the right hip joint but otherwise the hip is unremarkable." Subsequently, the patient received a palliative course of radiation therapy to the right pelvis which completed in April 2016. Since then, the patient has been underneath the supervision of Dr. Bakari Chávez and been receiving Keytruda. More recently, the patient presented to the hospital due to significant left chest wall pain. She did have a CT chest/PE protocol on 05/15/2016 which revealed: "IMPRESSION: 1. Study is negative for pulmonary embolus. 2. Progressive increase in size of a left pleural effusion. 3. Progressive left lower lobe consolidative change. 4. Baseline emphysematous and interstitial change. 5. Secondary evidence for a component of pulmonary arterial hypertension. 6. Progressive mucous plugging bilaterally." The patient was seen in consultation by Dr. Martín Doan who recently placed a Pleurx catheter on 05/16/2016 into the left chest wall to help drain the pleural effusions; the pathology is still pending from the pleural effusion. She did have a post operative chest x-ray which revealed: "IMPRESSION: Placement of a left basilar drainage catheter. Decrease left pleural effusion. No evidence pneumothorax." The patient was also seen in consultation by Dr. Alexi White from pulmonary medicine. Dr. White recommended a consultation for palliative radiation therapy due to the fact the patient is having significant pain in her left chest wall. We are now seeing the patient in consultation. Currently, the patient states that her shortness of breath has improved. However, she does continue to have some tenderness in the left chest wall which was the reason why she was admitted to the hospital. She denies any hemoptysis or fevers chills night sweats. Pacemaker Hx Pacemaker: No Social History Smoking Status: Former Smoker Hx Tobacco Use In Past Year?: Yes Quit Date: Mar 05, 2016 Do You Dip or Chew Tobacco: No Hx Alcohol Use: No Hx Substance Use : Yes (tobacco) Allergies Coded Allergies: Latex (Verified Allergy, Mild, Itching, 02/14/16) Nitrofurantoin (Verified Allergy, Unknown, ., 02/14/16) Sulfamethoxazole w/Trimethoprim (Verified Allergy, Unknown, ., 02/14/16) Home Medications Scheduled Cholecalciferol (Vitamin D), 2,000 UNITS PO DAILY Docusate Sodium (Colace), 100 MG PO BID Fexofenadine Hcl (Delores Allergy), 180 MG PO DAILY Losartan Potassium (Cozaar), 50 MG PO DAILY Metoprolol Succ (Toprol Xl) (Toprol-Xl ), 100 MG PO DAILY Multiple Vitamins W/ Minerals (Icaps), 1 CAP PO DAILY Pembrolizumab (Keytruda), 100 MG IV EVERY 3 WEEKS Tiotropium [place] (Spiriva Handihaler), 1 CAP INH DAILY Zoledronic Acid (Zometa), 4 MG IV MONTHLY Scheduled PRN Acetaminophen/Diphenhydramine (Tylenol Pm), 1 TAB PO HS PRN for Insomnia Albuterol Hfa (Ventolin Hfa), 2 PUFFS INH Q6H PRN for SOB/Wheezing Albuterol Sulfate (Albuterol Sulfate), 1 VIAL NEB Q4 PRN for SOB/Wheezing Hydrocodone/Acetaminophen 5MG/325MG ([place] 5MG/325MG), 1 TABLET PO Q6 PRN for Pain Review of Systems Extremities: Hx Deep Vein Thrombosis: No Eyes: Hx Cataracts: Yes (One starting in one of her eyes.) Ear/Hearing: Ear Side: Bilateral Hearing Ability: Normal Hearing Aid: None Edema: Present?: No Location Body Site Modifier: Bilateral Pain Management Side: Left Patient Preferred Pain Scale: 0 - 10 Initial Pain Intensity: 5.0 Pain Description: Stabbing, Sharp Physical Exam Height: 4 (Feet) 11.00 (Inches) 149.9 (Centimeters) 1.4986 (Meters) Weight: 140 (Pounds) 0.2 (Ounces) 63.000 (Kilograms) 74857.000 (Grams) Date Time Temp Pulse Resp B/P Pulse Ox O2 Delivery O2 Flow Rate FiO2 05/16/16 12:00 Nasal Cannula 3.0 05/16/16 11:14 36.5 86 18 144/86 97 Nasal Cannula 3.0 05/16/16 11:09 86 18 98 Nasal Cannula 3.0 05/16/16 08:30 Nasal Cannula 3.0 05/16/16 07:22 90 18 97 Nasal Cannula 3.0 05/16/16 07:19 36.9 89 18 176/96 97 Nasal Cannula 3.0 05/16/16 04:00 94 Nasal Cannula 3.0 Humidified Oxygen 05/16/16 03:51 36.8 87 18 156/90 96 Nasal Cannula 3.0 05/16/16 00:00 94 Nasal Cannula 3.0 Humidified Oxygen 05/16/16 00:00 36.5 88 20 170/96 94 Nasal Cannula 3.0 05/15/16 21:49 36.3 87 18 162/90 96 Nasal Cannula 3.0 05/15/16 20:00 36.3 87 18 162/90 96 Nasal Cannula 3.0 Humidified Oxygen 05/15/16 17:40 82 22 152/95 97 Nasal Cannula 3.0 05/15/16 17:02 75 20 173/89 98 Nasal Cannula 2.0 05/15/16 17:01 78 05/15/16 15:29 87 22 167/95 97 Nasal Cannula 3.0 05/15/16 14:42 81 18 189/102 General Appearance: WD/WN, no apparent distress Respiratory/Chest: chest non-tender, lungs clear, + decreased breath sounds Cardiovascular: regular rate, rhythm, no edema, no gallop, no JVD, no murmur Abdomen/GI: normal bowel sounds, non tender, soft, no organomegaly 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 Maximal intensity projection images were also obtained. COMPARISON STUDY: 03/16/2016 FINDINGS: Progressive left pleural effusion. Left lower lobe atelectasis. Study is negative for pulmonary embolus. Mucous plug in the lung bases. Findings suggesting a component of mild pulmonary hypertension. Mild atelectasis right base. IMPRESSION: 1. Study is negative for pulmonary embolus. 2. Progressive increase in size of a left pleural effusion. 3. Progressive left lower lobe consolidative change. 4. Baseline emphysematous and interstitial change. 5. Secondary evidence for a component of pulmonary arterial hypertension 6. Progressive mucous plugging bilaterally Assessment & Recommendations Ms. Stewart is a 70-year-old female with metastatic lung cancer who was previously treated with palliative radiation therapy in April 2016 to the right hip for which she did have a very good response. She is currently receiving Keytruda underneath the supervision of Dr. Bakari Chávez. The patient was recently admitted to the hospital due to left-sided chest wall pain and her workup revealed a large left pleural effusion which was drained using a Pleurx catheter by Dr. Doan earlier today. The patient was also seen in consultation by Dr. Alexi White from pulmonary medicine who recommended consideration of palliative radiation therapy to the left chest wall due to potential pleural infiltration causing pain. We are now seeing the patient in consultation. Prior to seeing the patient I did have the opportunity to speak with the hospitalist, Dr. Doan and Dr. White. At this point, I have recommended that we give the patient several more days to potentially respond from the placement of the Pleurx catheter. If the patient' s pain does not improve by the end of the week, we will schedule the patient for a CT simulation next Sunday to potentially use palliative radiation therapy to alleviate the patient's chest wall pain I have explained to the patient's daughter and son as well as the patient that radiation therapy may or may not improve her pain due to the fact that it is more challenging to localize pain from pleural effusions. With that being said, the patient was very enthusiastic from her previous response to radiation therapy and would like to potentially considered again. If the patient's pain does improve, she will call us to cancel the CT simulation. We have explained the indications, alternatives, benefits, risks and side effects of radiation therapy to the lung. We have explained the most common side effects with include but are not limited to skin erythema, skin break down , pulmonary fibrosis, adhesion development, radiation pneumonitis, rib fracture , heart failure and heart disease, esophagitis, development of fistula, fatigue and development of secondary malignancy. We have explained the CT simulation process and treatment planning. We explained what to expect before, during and after treatment on a regular basis. The patient understands and would be willing to consent to treatment. The patient and family had multiple questions which were answered to their full satisfaction. Thank you for allowing us to participate in the care of this patient. This chart was completed in part utilizing [employer] Speech Voice Recognition software. Attempts were made to minimize the grammatical errors, random word insertions, pronoun errors and incomplete sentences. Any formal questions or concerns about the content, text or information contained within the body of this dictation should be directly addressed to the provider for clarification. Kelly Agee MD Department of Radiation Oncology [facility] Total Time In Consultation I spent 30 minutes examining and counseling the patient. I spent 15 minutes completing this note. Copy To Bakari Chávez MD; Jeanine Browning PA-C; Tanner Martin MD; Basim White MD; Martín Doan MD
[2016-05-16] MEDS: LEVOFLOXACIN / D5W 750 MG in PREMIXED IN D5W 150 ML IV SCH (15:41)
[2016-05-16] MEDS: KETOROLAC TROMETHAMINE 15 MG/ML VIAL IV. SCH ×2 (15:42→22:19)
[2016-05-16] MEDS: ENOXAPARIN 40 MG/0.4 ML SYR SC SCH (21:00)
[2016-05-17] VITALS (10 sets, daily range): BP systolic 138–158; BP diastolic 83–98; PULSE 78–96; TEMP 36.7–37.2; O2SAT 94–97
[2016-05-17] MEDS: HYDROCODONE/ACETAMOPHEN 5/325MG TAB PO PRN ×3 (00:35→18:42)
[2016-05-17] MEDS ORDERED: NITROGLYCERIN 0.4 MG SL PER TAB CHARGE SL STA (03:53)
[2016-05-17 04:41] LABS: BASO % 0.5 %; BASO ABS # 0.04 K/uL (0-0.2); COMPLETE YES; HEMATOCRIT 32.5 % (37-47); IG% 0.5 %; LYMPH % 10.7 %; LYMPH ABS # 0.95 K/uL (1.2-3.4); MEAN CELL VOLUME 87.1 fL (80-100); MEAN CORPUSCULAR HEMOGLOBIN 29.2 pg (25-34); MEAN CORPUSCULAR HGB CONC 33.5 g/dl (32-36); MONO % 5.8 %; NEUT % 76.5 %; PLATELET COUNT 280 K/uL (130-400); RED BLOOD COUNT 3.73 M/uL (4.2-5.4); WHITE BLOOD COUNT 8.86 K/uL (4.8-10.8)
[2016-05-17 04:54] LABS: PARTIAL THROMBOPLASTIN RATIO 1.3
[2016-05-17 04:59] LABS: ALT/SGPT 13 U/L (12-78); AST/SGOT 12 U/L (15-37); BLOOD UREA NITROGEN 9 mg/dl (7-18); CALCIUM 7.6 mg/dl (8.5-10.1); CARBON DIOXIDE 27 mmol/L (21-32); CHLORIDE 98 mmol/L (98-107); CREATININE 0.63 mg/dl (0.60-1.20); GLUCOSE 94 mg/dl (70-99); MAGNESIUM 1.6 mg/dl (1.8-2.4); POTASSIUM 4.1 mmol/L (3.5-5.1); SODIUM 133 mmol/L (136-145)
[2016-05-17] MEDS: KETOROLAC TROMETHAMINE 15 MG/ML VIAL IV. SCH ×4 (05:07→22:00)
[2016-05-17 05:09] LABS: ALB/GLOB RATIO 0.6 (0.9-2); ALKALINE PHOSPHATASE 56 U/L (45-117)
[2016-05-17] MEDS ORDERED: MAGNESIUM SULFATE 1GM / D5W 1 GM in PREMIXED IN D5W 100 ML IV ONE ×2 (05:30→16:00)
[2016-05-17] MEDS: ALBUT/IPRATROP 3MG/0.5MG NEB 3 ML VIAL INH SCH ×3 (07:20→19:58)
--- NOTE | 2016-05-17 07:27 | DIAGNOSTIC IMAGING REPORT ---
CHEST ONE VIEW PORTABLE HISTORY: Pleurx placement COMPARISON: Chest 05/16/2016. FINDINGS: Left-sided chest tube terminates in the left lung apex. No definite pneumothorax. Small left pleural effusion has decreased in size. There are patchy bibasilar densities persist. The heart remains enlarged. Right jugular Port-A-Cath terminates in the superior cavoatrial junction. IMPRESSION: 1. Left chest tube terminates in the left lung apex. No definite pneumothorax. 2. Small left pleural effusion is decreased in size. 3. Patchy bibasilar densities persist. Electronically signed by: Arvind Silverio M.D. 05/17/2016 7:25 AM Dictated Date/Time: 05/17/2016 7:24 AM
[2016-05-17] MEDS: TIOTROPIUM BROMIDE 5 PUFF/90 MCG INH INH SCH (09:02)
[2016-05-17] MEDS: LOSARTAN POTASSIUM 50 MG TAB PO SCH (09:03)
[2016-05-17] MEDS: FEXOFENADINE HCL 180 MG TAB PO SCH (09:03)
[2016-05-17] MEDS: DOCUSATE SODIUM 100 MG CAP PO SCH ×2 (09:03→21:57)
[2016-05-17] MEDS: CEROVITE ADV FORMULA TAB PO SCH (09:04)
[2016-05-17] MEDS: METOPROLOL SUCC 50MG EXT REL TAB PO SCH (09:04)
[2016-05-17] MEDS: CHOLECALCIFEROL 1000 INTER.UNIT TAB PO SCH (09:08)
--- NOTE | 2016-05-17 11:56 | SURGERY PROGRESS NOTE ---
DATE: 05/17/2016 Ms. Stewart was seen today on 05/17/2016. We placed her chest tube and drained over 1000 mL of fluid yesterday and she feels better. We did drain very little today, but the patient had been down as low as room air, which is an improvement: Upon evaluation of the fluid, the LDH was 132, glucose was 83. Pleural fluid was evaluated and there is no evidence of malignancy in this pleural fluid, although there is lymphocytosis. Her x-ray shows good placement of the PleurX catheter. At this point, she is having some pain and Dr. Agee saw her about possibly radiating her for pain control locally as there is pleural involvement; however, a plan has been made to hold off on this thus far and to see how she does. CHITRA
--- NOTE | 2016-05-17 15:12 | Progress Note ---
Internal Med Progress Note Date of Service: May 17, 2016. Provider Documentation: SUBJECTIVE: Patient is seen and examined at bedside. Patient states left sided chest pain and SOB improved when compared to yesterday. Eager to get discharged. OBJECTIVE: Vital Signs-as noted below Physical Exam: Vitals signs as noted above General Appearance:Moderately built and nourished, no apparent distress Head: normocephalic, Atraumatic Eyes: normal inspection, EOMI, PERRLA Neck: supple, Trachea midline Respiratory/Chest: Decreased breath sounds, CTA, No accessory muscle use Cardiovascular: S1, S2, No murmur Abdomen/GI:Soft, Non tender, Bowel sounds present Extremities/Musculoskelatal:normal inspection, no edema Neurologic/Psych:AAOX3, grossly no focal neurological deficits Skin: normal color, warm Lab data as noted below. ASSESSMENT & PLAN: ACUTE RESPIRATORY FAILURE WITH HYPOXIA: SECONDARY TO L SIDED PNEUMONIA/PLEURAL EFFUSION Patient presented with worsening SOB, dry cough and left sided pleuritic pain Pleural effusion likely malignant in origin S/P Left thoracentesis and Pleurx catheter placement CTA: L sided pneumonia and progressing pleural effusion; no evidence of PE Continue Oxygen support, IV antibiotics, Bronchodilators Appreciate Pulmonary/CT surgery input Continue Toradol per Pulm Radiation oncology on board: Planned for possible palliative radiation therapy if not resolution of symptoms as outpatient FU blood culture: No growth to date Pleural fluid studies:no evidence of malignancy in pleural fluid, + lymphocytosis Repeat CXR: pleural effusion is improving HYPOKALEMIA Resolved Continue to monitor HYPOMAGNESEMIA: Will replace and monitor STAGE IV METASTATIC SQUAMOUS CELL LUNG CA s/p palliative radiation to R hip currently undergoing immunotherapy with Keytruda every 3 weeks (last tx ) Appreciate hem/onc and radiation oncology input Patient and family not interested about palliative care involvement Rib scan: pending HTN BP controlled Continue losartan and metoprolol Continue to monitor DVT PROPHYLAXIS Lovenox SQ CODE STATUS DNR DISPOSITION: Patient prefers to be discharged home: may need home health Vital Signs: Date Time Temp Pulse Resp B/P Pulse Ox O2 Delivery O2 Flow Rate FiO2 05/17/16 12:00 94 Room Air 1.0 Nasal Cannula 05/17/16 12:00 94 Room Air 1.0 Nasal Cannula 05/17/16 08:00 94 Room Air 1.0 Nasal Cannula 05/17/16 07:20 82 18 95 Nasal Cannula 3.0 05/17/16 07:20 36.9 86 18 138/83 94 Nasal Cannula 2.0 05/17/16 04:15 Nasal Cannula 3.0 Humidified Oxygen 05/17/16 03:49 36.8 95 22 157/88 96 Nasal Cannula 3.0 Humidified Oxygen 05/17/16 00:00 Nasal Cannula 3.0 Humidified Oxygen 05/16/16 23:40 37.0 88 20 144/86 97 Nasal Cannula 2.0 05/16/16 20:00 90 Nasal Cannula 3.0 05/16/16 19:26 37.0 95 20 137/78 97 Nasal Cannula 3.0 05/16/16 19:02 88 18 91 Nasal Cannula 3.0 05/16/16 16:00 90 Nasal Cannula 3.0 Lab Results: Results Past 24 Hours Test 05/17/16 04:35 05/17/16 10:30 Range/Units White Blood Count 8.86 4.8-10.8 K/uL Red Blood Count 3.73 4.2-5.4 M/uL Hemoglobin 10.9 12.0-16.0 g/dL Hematocrit 32.5 37-47 % Mean Corpuscular Volume 87.1 80-100 fL Mean Corpuscular Hemoglobin 29.2 25-34 pg Mean Corpuscular Hemoglobin Concent 33.5 32-36 g/dl Platelet Count 280 130-400 K/uL Mean Platelet Volume 8.0 7.4-10.4 fL Neutrophils (%) (Auto) 76.5 % Lymphocytes (%) (Auto) 10.7 % Monocytes (%) (Auto) 5.8 % Eosinophils (%) (Auto) 6.0 % Basophils (%) (Auto) 0.5 % Neutrophils # (Auto) 6.79 1.4-6.5 K/uL Lymphocytes # (Auto) 0.95 1.2-3.4 K/uL Monocytes # (Auto) 0.51 0.11-0.59 K/uL Eosinophils # (Auto) 0.53 0-0.5 K/uL Basophils # (Auto) 0.04 0-0.2 K/uL RDW Standard Deviation 49.2 36.4-46.3 fL RDW Coefficient of Variation 15.4 11.5-14.5 % Immature Granulocyte % (Auto) 0.5 % Immature Granulocyte # (Auto) 0.04 0.00-0.02 K/uL Activated Partial Thromboplast Time 34.5 21.0-31.0 SECONDS Partial Thromboplastin Ratio 1.3 Sodium Level 133 136-145 mmol/L Potassium Level 4.1 3.5-5.1 mmol/L Chloride Level 98 98-107 mmol/L Carbon Dioxide Level 27 21-32 mmol/L Anion Gap 8.0 3-11 mmol/L Blood Urea Nitrogen 9 7-18 mg/dl Creatinine 0.63 0.60-1.20 mg/dl Est Creatinine Clear Calc Drug Dose 67.1 ml/min Estimated GFR () 105.3 Estimated GFR (Non- 90.9 BUN/Creatinine Ratio 14.0 10-20 Random Glucose 94 70-99 mg/dl Calcium Level 7.6 8.5-10.1 mg/dl Magnesium Level 1.6 1.8-2.4 mg/dl Total Bilirubin 0.5 0.2-1 mg/dl Aspartate Amino Transf (AST/SGOT) 12 15-37 U/L Alanine Aminotransferase (ALT/SGPT) 13 12-78 U/L Alkaline Phosphatase 56 45-117 U/L Troponin I < 0.015 < 0.015 0-0.045 ng/ml Total Protein 5.9 6.4-8.2 gm/dl Albumin 2.1 3.4-5.0 gm/dl Globulin 3.8 2.5-4.0 gm/dl Albumin/Globulin Ratio 0.6 0.9-2 Lipase 118 73-393 U/L
--- NOTE | 2016-05-17 15:39 | DIAGNOSTIC IMAGING REPORT ---
WHOLE BODY BONE SCAN HISTORY: Pain 25.8 RADIOTRACER: 20 5. mCi Tc-99m MDP STUDY/IMAGES: Planar anterior and posterior whole body imaging was performed 3 hours following the intravenous administration of radiotracer. COMPARISON: None. FINDINGS: Bilateral renal activity is present. Linear focus of increased activity right 10th rib midaxillary line. Small focus of increased activity anterior left ninth rib. Moderate increase in activity of the left and to a somewhat greater extent right sacroiliac joint as well as S1 component of the sacral region. Increased activity left femoral head and proximal femoral neck. Moderate degenerative change of the shoulders bilaterally. IMPRESSION: 1. Increased activity of the right and to lesser extent left sacroiliac joint as well as the S1 component of the sacrum. 2. Nonspecific increased activity left femoral head neck and proximal femoral shaft. 3. Increased activity right 10th rib and anterior ninth rib. 4. Possible metastatic disease must be consideration Electronically signed by: Jose Pritchett M.D. 05/17/2016 3:38 PM Dictated Date/Time: 05/17/2016 3:33 PM
[2016-05-17] MEDS: LEVOFLOXACIN / D5W 750 MG in PREMIXED IN D5W 150 ML IV SCH (17:21)
[2016-05-17] MEDS: ENOXAPARIN 40 MG/0.4 ML SYR SC SCH (21:00)
[2016-05-17] MEDS: ACETAMINOPHEN 500 MG TAB PO PRN (21:58)
[2016-05-18] VITALS (10 sets, daily range): BP systolic 144–146; BP diastolic 82–86; PULSE 75–103; TEMP 36.8–37.4; O2SAT 88–97
[2016-05-18] MEDS: HYDROCODONE/ACETAMOPHEN 5/325MG TAB PO PRN ×3 (03:40→16:41)
[2016-05-18] MEDS: KETOROLAC TROMETHAMINE 15 MG/ML VIAL IV. SCH ×3 (04:00→15:47)
[2016-05-18 07:01] LABS: HEMATOCRIT 32.2 % (37-47); MEAN CORPUSCULAR HEMOGLOBIN 28.5 pg (25-34); MEAN CORPUSCULAR HGB CONC 33.5 g/dl (32-36); PLATELET COUNT 336 K/uL (130-400); RED BLOOD COUNT 3.79 M/uL (4.2-5.4); WHITE BLOOD COUNT 10.69 K/uL (4.8-10.8)
[2016-05-18 07:32] LABS: BUN/CREATININE RATIO 12.8 (10-20); CALCIUM 7.8 mg/dl (8.5-10.1); CREATININE 0.64 mg/dl (0.60-1.20); POTASSIUM 4.2 mmol/L (3.5-5.1)
[2016-05-18] MEDS: ALBUT/IPRATROP 3MG/0.5MG NEB 3 ML VIAL INH SCH ×3 (07:32→15:27)
--- NOTE | 2016-05-18 08:37 | DIAGNOSTIC IMAGING REPORT ---
CHEST ONE VIEW PORTABLE CLINICAL HISTORY: Pleural effusion. COMPARISON STUDY: Chest radiograph May 17, 2016. FINDINGS: Right internal jugular Abtvop-d-Ezfg remains in place. A left chest tube directed to the apex is in place. A small residual left pleural effusion is noted. There is no pneumothorax. There is a small right pleural effusion. There are bibasilar opacities. Note is made of pulmonary vascular congestion. There is emphysema. Left hilar enlargement is unchanged. IMPRESSION: 1. Left chest tube in place. No pneumothorax. Small bilateral pleural effusions. 3. No change in bibasilar opacities, left greater than right. Electronically signed by: Yong Greco M.D. 05/18/2016 8:36 AM Dictated Date/Time: 05/18/2016 8:30 AM
[2016-05-18] MEDS: TIOTROPIUM BROMIDE 5 PUFF/90 MCG INH INH SCH (08:42)
[2016-05-18] MEDS: CEROVITE ADV FORMULA TAB PO SCH (08:42)
[2016-05-18] MEDS: DOCUSATE SODIUM 100 MG CAP PO SCH (08:42)
[2016-05-18] MEDS: METOPROLOL SUCC 50MG EXT REL TAB PO SCH (08:43)
[2016-05-18] MEDS: CHOLECALCIFEROL 1000 INTER.UNIT TAB PO SCH (08:43)
[2016-05-18] MEDS: LOSARTAN POTASSIUM 50 MG TAB PO SCH (08:43)
[2016-05-18] MEDS: FEXOFENADINE HCL 180 MG TAB PO SCH (08:44)
[2016-05-18] MEDS: ACETAMINOPHEN 500 MG TAB PO PRN (08:45)
--- NOTE | 2016-05-18 09:37 | Progress Note ---
Internal Med Progress Note Date of Service: May 18, 2016. Provider Documentation: SUBJECTIVE: Patient is seen and examined at bedside. States having persistent left sided chest pain at the site of catheter. Also reports left leg pain while lying on left side which is chronic. Denies any SOB, dizziness. Family at bedside. OBJECTIVE: Vital Signs-as noted below Physical Exam: Vitals signs as noted above General Appearance:Moderately built and nourished, no apparent distress Head: normocephalic, Atraumatic Eyes: normal inspection, EOMI, PERRLA Neck: supple, Trachea midline Respiratory/Chest: B/L air entry, CTA, No accessory muscle use Cardiovascular: S1, S2, No murmur Abdomen/GI:Soft, Non tender, Bowel sounds present Extremities/Musculoskelatal:normal inspection, no edema Neurologic/Psych:AAOX3, grossly no focal neurological deficits Skin: normal color, warm Lab data as noted below. ASSESSMENT & PLAN: ACUTE RESPIRATORY FAILURE WITH HYPOXIA: SECONDARY TO L SIDED PNEUMONIA/PLEURAL EFFUSION Patient presented with worsening SOB, dry cough and left sided pleuritic pain Pleural effusion likely malignant in origin S/P Left thoracentesis and Pleurx catheter placement CTA: L sided pneumonia and progressing pleural effusion; no evidence of PE Continue Oxygen support, PO Levaquin, Bronchodilators Appreciate Pulmonary/CT surgery help Continue Toradol per Pulm Radiation oncology on board: Planned for possible palliative radiation therapy if not resolution of symptoms as outpatient FU blood culture: No growth to date Pleural fluid studies:cultures pending Repeat CXR: No pneumothorax. 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 currently undergoing immunotherapy with Keytruda every 3 weeks (last tx ) Appreciate hem/onc and radiation oncology input Patient and family not interested about palliative care involvement Bone scan: as below Left leg pain likely secondary to mets HTN Continue losartan and metoprolol Continue to monitor DVT PROPHYLAXIS Lovenox SQ CODE STATUS DNR DISPOSITION: Patient prefers to be discharged home: may need home health Follow up with on 05/24 at 1:10pm Follow up with Dr.Veeral Agee for possible palliative radiation therapy as advised Follow up with (Oncology) at [facility] 06/06/16 at 3:00pm Follow up with (Oncology) for further treatments as advised Follow up with in 1 week as advised PROCEDURES: BONE SCAN: 1. Increased activity of the right and to lesser extent left sacroiliac joint as well as the S1 component of the sacrum. 2. Nonspecific increased activity left femoral head neck and proximal femoral shaft. 3. Increased activity right 10th rib and anterior ninth rib. 4. Possible metastatic disease must be consideration CT CHEST: 1. A left-sided chest tube is in place as detailed above. There is no pneumothorax. 2. There is a small residual left pleural effusion with dense left basilar consolidation. This has significantly decreased in size from 05/15/2016. 3. There is a trace right pleural effusion with right basilar consolidation. Cortical clinically for evidence of superimposed pneumonia at the lung bases. 4. Advanced emphysema and cardiomegaly with evidence of pulmonary artery hypertension. 5. There are numerous bilateral pulmonary nodules as detailed above. The largest measures 8 mm and is located in the right lower lobe. The appearance is highly concerning for metastatic disease. 6. There is an osteolytic lesion in the right 9th rib with evidence of pathologic fracture. 7. A low-density hepatic metastasis as well as a peritoneal implant anterior to the liver are identified in the upper abdomen. 8. Bulky mediastinal lymphadenopathy is consistent with metastatic disease. 9. Additional findings as above. Vital Signs: Date Time Temp Pulse Resp B/P Pulse Ox O2 Delivery O2 Flow Rate FiO2 05/18/16 15:27 103 18 88 Room Air 05/18/16 12:00 91 Room Air 05/18/16 11:39 82 18 91 Room Air 05/18/16 11:23 36.9 85 18 146/86 90 Room Air 05/18/16 08:05 95 Nasal Cannula 1.0 05/18/16 07:46 36.8 82 18 144/84 95 1.0 05/18/16 07:32 75 18 97 Nasal Cannula 2.0 05/18/16 04:00 Nasal Cannula 1.0 Humidified Oxygen 05/18/16 03:32 37.4 92 18 144/82 96 Nasal Cannula 2.0 05/18/16 00:10 Nasal Cannula 1.0 Humidified Oxygen 05/17/16 23:04 37.2 96 18 146/83 96 Nasal Cannula 2.0 05/17/16 20:00 94 Nasal Cannula 1.0 05/17/16 19:58 78 18 97 Nasal Cannula 1.5 05/17/16 19:37 36.9 88 14 158/98 96 Nasal Cannula 1.0 Lab Results: Results Past 24 Hours Test 05/18/16 06:40 Range/Units White Blood Count 10.69 4.8-10.8 K/uL Red Blood Count 3.79 4.2-5.4 M/uL Hemoglobin 10.8 12.0-16.0 g/dL Hematocrit 32.2 37-47 % Mean Corpuscular Volume 85.0 80-100 fL Mean Corpuscular Hemoglobin 28.5 25-34 pg Mean Corpuscular Hemoglobin Concent 33.5 32-36 g/dl RDW Standard Deviation 48.6 36.4-46.3 fL RDW Coefficient of Variation 15.5 11.5-14.5 % Platelet Count 336 130-400 K/uL Mean Platelet Volume 8.0 7.4-10.4 fL Sodium Level 132 136-145 mmol/L Potassium Level 4.2 3.5-5.1 mmol/L Chloride Level 98 98-107 mmol/L Carbon Dioxide Level 27 21-32 mmol/L Anion Gap 7.0 3-11 mmol/L Blood Urea Nitrogen 8 7-18 mg/dl Creatinine 0.64 0.60-1.20 mg/dl Est Creatinine Clear Calc Drug Dose 66.0 ml/min Estimated GFR () 104.8 Estimated GFR (Non- 90.4 BUN/Creatinine Ratio 12.8 10-20 Random Glucose 99 70-99 mg/dl Calcium Level 7.8 8.5-10.1 mg/dl
--- NOTE | 2016-05-18 12:42 | Surgery Progress Note ---
Subjective Date of Service: May 18, 2016. Pt. doing well. Pain reported when pleurex drained. Objective Vitals Date Time Temp Pulse Resp B/P Pulse Ox O2 Delivery O2 Flow Rate FiO2 05/18/16 11:39 82 18 91 Room Air 05/18/16 11:23 36.9 85 18 146/86 90 Room Air 05/18/16 08:05 95 Nasal Cannula 1.0 05/18/16 07:46 36.8 82 18 144/84 95 1.0 05/18/16 07:32 75 18 97 Nasal Cannula 2.0 05/18/16 04:00 Nasal Cannula 1.0 Humidified Oxygen 05/18/16 03:32 37.4 92 18 144/82 96 Nasal Cannula 2.0 05/18/16 00:10 Nasal Cannula 1.0 Humidified Oxygen 05/17/16 23:04 37.2 96 18 146/83 96 Nasal Cannula 2.0 05/17/16 20:00 94 Nasal Cannula 1.0 05/17/16 19:58 78 18 97 Nasal Cannula 1.5 05/17/16 19:37 36.9 88 14 158/98 96 Nasal Cannula 1.0 05/17/16 16:00 94 Nasal Cannula 1.0 05/17/16 15:42 36.7 93 18 144/87 94 Nasal Cannula 2.0 Physical Exam General: + well developed, + well nourished CV: + RRR Pulmonary: + accessory muscle use, + pertinent finding (slight decrease at left base), + respiratory distress Neurologic: + alert & oriented x 3 Radiology CXR shows small amount of residual fluid Drains / Tubes pleurex (left sided; 45 cc drained this am ) Assessment & Plan 70 year old female with left pleural effusion -due to CXR findings and low volume of fluid draining, will obtain CT scan of chest to assess amount of residual fluid: -plan for pleurex will be determined by CT scan finding -options may include MIST protocol, talc pleurodesis, or removal of pleurex
--- NOTE | 2016-05-18 13:54 | DIAGNOSTIC IMAGING REPORT ---
ADDENDUM ADDENDUM: At the clinician's request the 04/24/2016 examination from [facility] was also compared. Although direct comparison is suboptimal due to differences in technique (no IV contrast on today's examination) Enlarged mediastinal lymph nodes have increased in size from 04/24/2016. A software support representative prevascular lymph node measuring 1.9 x 1.6 cm previously measured 1.6 x 1.1 cm. A subcarinal node has also noticeably increased in size. Electronically signed by: Eric Griffin M.D. 05/19/2016 3:08 PM Dictated Date/Time: 05/19/2016 3:[address] SCAN OF THE CHEST WITHOUT IV CONTRAST CLINICAL HISTORY: Pleural effusion. COMPARISON STUDY: Chest CT dated 05/15/2016. Chest x-ray dated 05/18/2016. PET/CT dated 02/17/2016. TECHNIQUE: CT scan of the thorax was performed from the thoracic inlet to the upper abdomen. Images are reviewed in the axial, sagittal, and coronal planes. IV contrast was not administered for this examination as per the referring clinician. The examination is degraded by streak artifact from the left arm which could not be elevated above the chest. CT DOSE: 257.35 mGy.cm FINDINGS: Thyroid: Imaged portions of the thyroid gland are normal in size and attenuation. Thoracic aorta: There is atherosclerotic calcification of the thoracic aorta, which is normal in caliber and demonstrates standard 3-vessel arch anatomy. A right subclavian central venous infusion port is in place. Heart: The heart is enlarged size and there is a small pericardial effusion. The coronary arteries are densely calcified. The main pulmonary trunk is dilated measuring 3.6 cm. This suggests pulmonary artery hypertension. Lungs and pleural spaces: There is advanced emphysema. A left-sided chest tube is present, entering between the left lateral seventh and eighth ribs with the tip located at the anterior left apex. No pneumothorax is seen. There is a small residual left pleural effusion with dense left basilar consolidation. There is a trace right pleural effusion with right basilar consolidation. There are several (at least 5) pulmonary nodules scattered throughout the left upper lung. The largest measure up to 5 mm, as seen on images #94 and #83. There is an 8 mm nodule in the medial right lower lobe anterior to the vertebral column seen image #145. A 5 mm nodule at the right apex is seen on image #58. Additional smaller nodules are scattered throughout the right lung. Mediastinum: Mediastinal lymphadenopathy is unchanged. A prevascular node on image #102 measures 1.9 x 1.6 cm. A subcarinal node on image #130 measures 2.6 x 1.8 cm. These demonstrate central low density which may represent necrosis. Ayleen: Not well assessed without IV contrast. Axillae: There is no axillary lymphadenopathy. Upper abdomen: Cholecystectomy clips are noted. There is glandular atrophy of the imaged pancreas. The partially imaged kidneys demonstrate cortical atrophy there is a 2.0 cm low-density lesion in the right lobe of liver seen on image #274. A small peritoneal nodule anterior the liver seen on image #291 and measures 1.1 cm. Skeletal structures: The skeletal structures are osteopenic. An osteolytic lesion with pathologic fracture is identified in the right ninth rib seen on image #197. IMPRESSION: 1. A left-sided chest tube is in place as detailed above. There is no pneumothorax. 2. There is a small residual left pleural effusion with dense left basilar consolidation. This has significantly decreased in size from 05/15/2016. 3. There is a trace right pleural effusion with right basilar consolidation. Cortical clinically for evidence of superimposed pneumonia at the lung bases. 4. Advanced emphysema and cardiomegaly with evidence of pulmonary artery hypertension. 5. There are numerous bilateral pulmonary nodules as detailed above. The largest measures 8 mm and is located in the right lower lobe. The appearance is highly concerning for metastatic disease. 6. There is an osteolytic lesion in the right 9th rib with evidence of pathologic fracture. 7. A low-density hepatic metastasis as well as a peritoneal implant anterior to the liver are identified in the upper abdomen. 8. Bulky mediastinal lymphadenopathy is consistent with metastatic disease. 9. Additional findings as above. Electronically signed by: Eric Griffin M.D. 05/18/2016 1:53 PM Dictated Date/Time: 05/18/2016 1:41 PM
--- NOTE | 2016-05-18 15:12 | SURGERY PROGRESS NOTE ---
DATE: 05/18/2016 SUBJECTIVE: Ms. Stewart was seen today two days after we placed a PleurX catheter. She drained very small amounts in the last 2 days and had some reexpansion pain afterwards. Given that this is the case and given the fact that this fluid does not appear to be malignant, I feel we can pull this chest tube. We obtained a CT scan today and she still has consolidation of her left lower lobe with a small amount of fluid. This is posteriorly and the PleurX catheter is anterior and superior. At any rate, we are going to remove the PleurX catheter today. In addition, it appears that she has fairly abrupt cut off of her left lower lobe bronchus. At this point of course I would not offer her anything; however, there is a chance we will offer her something if she were again troubled. This patient has widely metastatic disease and at this point I would not offer her anything more than the minimal so that she may go home and join her family. CHITRA
--- NOTE | 2016-05-18 15:20 | Progress Note ---
Progress Note Date of Service May 18, 2016. Progress Note CT scan reviewed with Dr. Doan. There is a small amount of residual pleural fluid. This is unlikely to be drained by pleurex due to catheter position. Fluid makes talc pleurodesis less likely to be successful. As family inquired about talc, discussed with them that it would be less likely to be successful as previously stated as well as side effects of talc which include but are not limited to myalgias, aches, and fevers. Decision made not to perform talc pleurodesis. As the last 2 days the AM drainage was 50 cc or less, discussed with pt. & family the possibility of removing catheter. I noted that fluid may reaccumulate and require additional drainage procedures ( can be performed as outpt. if needed). They agreed to have catheter removed. Prior to removing catheter, I noted to pt. and family that drainage may occur from catheter insertion site and told them it is better to have fluid drain than to remain in pleural cavity. They expressed understanding. Left pleurex removed without difficulty. Entire catheter noted to be intact. Sterile dressing applied. Pt. tolerated well. Approximately 1.5 hours later I was called by RN that pt. saturated dressing with large amount of fluid while using her triflow. I provided reassurance to RN and stated that they may change dressing as needed for drainage. Office will call pt. for appt. in 1-2 weeks with CXR prior to appt. (Appt. may be sooner if needed.) I instructed pt. to call office with questions or concerns I placed written instructions in d/c section of chart as well as provided verbal instructions to pt. and family.
--- NOTE | 2016-05-18 15:23 | Discharge Instructions ---
Discharge Instructions Date of Service May 18, 2016. Admission Reason for Admission: Hypoxia, Pneumonia Discharge Discharge Diagnosis / Problem: Pleural Effusion Discharge Goals Goal(s): Decrease discomfort, Improve function, Learn about illness Activity Recommendations Activity Limitations: as noted below Lifting Limitations: none Exercise/Sports Limitations: none 1. From thoracic surgery perspective you may resume activity as tolerated. . Instructions / Follow-Up Instructions / Follow-Up 1. Keep dressing in place x 3 days then you may shower. No tub baths. 2. You may seep fluid from catheter site. If this occurs you may change dressing and cover area with dry gauze. 3. Appointment with Dr. Doan in 1-2 week. Office will call you with date and time of appointment. You will need a chest x-ray prior to appointment. Current Hospital Diet Patient's current hospital diet: Regular Diet Discharge Diet Recommended Diet: Regular Diet Pending Studies Studies pending at discharge: no Medical Emergencies . Who to Call and When: Medical Emergencies: If at any time you feel your situation is an emergency, please call 911 immediately. . Non-Emergent Contact Non-Emergency issues call your: Surgeon Call Non-Emergent contact if: your pain is worsening, wound has increased redness, wound has increased pain . "Provider Documentation" section prepared by Feliz Beard. VTE Core Measure Inpt VTE Proph given/why not?: Enoxaparin (Lovenox)SQ
[2016-05-18] MEDS ORDERED: LEVOFLOXACIN 750 MG TAB PO SCH (16:00)
[2016-05-18] MEDS ORDERED: LVQ750 PO (16:17)
[2016-05-18] MEDS ORDERED: KETO10TA PO (16:17)
--- NOTE | 2016-05-18 16:24 | Discharge Summary ---
Discharge Summary Date of Service May 18, 2016. Discharge Summary Admission Date: May 15, 2016 at 17:13 Discharge Date: May 18, 2016 Discharge Disposition: Home with services Principal Diagnosis: Pneumonia, Left pleural effusion, Metastatic lung disease Procedures: PleurX catheter placement S/P removal CTA: 1. Study is negative for pulmonary embolus. 2. Progressive increase in size of a left pleural effusion. 3. Progressive left lower lobe consolidative change. 4. Baseline emphysematous and interstitial change. 5. Secondary evidence for a component of pulmonary arterial hypertension 6. Progressive mucous plugging bilaterally Chest USD: 600 cc left effusion. No significant right effusion. Bone Scan; 1. Increased activity of the right and to lesser extent left sacroiliac joint as well as the S1 component of the sacrum. 2. Nonspecific increased activity left femoral head neck and proximal femoral shaft. 3. Increased activity right 10th rib and anterior ninth rib. 4. Possible metastatic disease must be consideration CT chest: 1. A left-sided chest tube is in place as detailed above. There is no pneumothorax. 2. There is a small residual left pleural effusion with dense left basilar consolidation. This has significantly decreased in size from 05/15/2016. 3. There is a trace right pleural effusion with right basilar consolidation. Cortical clinically for evidence of superimposed pneumonia at the lung bases. 4. Advanced emphysema and cardiomegaly with evidence of pulmonary artery hypertension. 5. There are numerous bilateral pulmonary nodules as detailed above. The largest measures 8 mm and is located in the right lower lobe. The appearance is highly concerning for metastatic disease. 6. There is an osteolytic lesion in the right 9th rib with evidence of pathologic fracture. 7. A low-density hepatic metastasis as well as a peritoneal implant anterior to the liver are identified in the upper abdomen. 8. Bulky mediastinal lymphadenopathy is consistent with metastatic disease. 9. Additional findings as above. Consultations: CT surgery, Pulmnology, Oncology, Radiation oncology Pending Studies/Follow-Up: Follow up with on 05/24 at 1:10pm Follow up with Dr.Veeral Agee for possible palliative radiation therapy as advised Follow up with (Oncology) at [place] 06/06/16 at 3:00pm Follow up with (Oncology) for further treatments as advised Follow up with in 1 week as advised with a repeat Chest X ray Medication Reconciliation New Medications: Ketorolac Tromethamine (Toradol) 10 Mg Tab 10 MG PO Q6H PRN for Pain for 5 Days, #20 TAB Levofloxacin (Levofloxacin) 750 Mg Tab 750 MG PO DAILY@1600 for 7 Days, #7 TAB Continued Medications: Acetaminophen/Diphenhydramine (Tylenol Pm) 500 Mg/25 Mg Tab 1 TAB PO HS PRN for Insomnia, TAB Albuterol Hfa (Ventolin Hfa) 200 Puffs/91027 Mcg Aers 2 PUFFS INH Q6H PRN for SOB/Wheezing, #1 INHALER Albuterol Sulfate (Albuterol Sulfate) 1.25 Mg/3 Ml Neb 1 VIAL NEB Q4 PRN for SOB/Wheezing for 5 Days, #75 ML Cholecalciferol (Vitamin D) 2,000 Unit Cap 2000 UNITS PO DAILY Docusate Sodium (Colace) 100 Mg Cap 100 MG PO BID, #60 CAP Fexofenadine Hcl (Delores Allergy) 180 Mg Tab 180 MG PO DAILY for 14 Days, #14 TAB 2 Refills Hydrocodone/Acetaminophen 5MG/325MG (Diller 5MG/325MG) Tab 1 TABLET PO Q6 PRN for Pain, TAB PRN PAIN Losartan Potassium (Cozaar) 50 Mg Tab 50 MG PO DAILY, TAB Metoprolol Succ (Toprol Xl) (Toprol-Xl ) 100 Mg Tabcr 100 MG PO DAILY, TAB Multiple Vitamins W/ Minerals (Icaps) 1 Cap Cap 1 CAP PO DAILY Pembrolizumab (Keytruda) 100 Mg/4 Ml Inj 100 MG IV EVERY 3 WEEKS Tiotropium [place] (Spiriva Handihaler) 30 Puff/540 Mcg Aerp 1 CAP INH DAILY for 30 Days, #30 CAP 3 Refills Zoledronic Acid (Zometa) 4 Mg/100 Ml Inj 4 MG IV MONTHLY Admission Information HPI (per Admitting provider): This is a 70 y/o female with PMHx of Stage IV Lung CA currently undergoing immunotherapy, HTN and other problems as outlined below who presents to the ED c /o worsening SOB x 4 days. Pt reports that 4 days ago she developed SOB that is better with sitting up straight and worse with exertion. Sxs are assoc with a dry cough, mild wheezing and L sided rib pain. The rib pain is located just below the L breast and is described as waxing and waning "sharp" pain that at times reaches a 10/10. She has been taking hydrocodone at home for her discomfort with no relief. Pt called her oncologist today who recommended she go to the ED to have an evaluation for a possible blood clot in her lungs. Pt was hospitalized at [facility] in March with a small L pleural effusion and pneumonia. The pleural effusion was too small to tap therefore patient was treated with abx. Her sxs greatly improved and she had been doing well until a few days ago. 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 She is currently receiving immunotherapy with Keytruda every 3 weeks. Her last treatment was 04/26. Patient follows with hem/ onc, Dr.Keriann Chávez. Pt denies fever/chills, diaphoresis, chest pain, abd pain , N/V, bowel or bladder issues, LE edema ,calf pain, lightheadedness/dizziness. In the ED, pt is hypoxic to 84% on room air. She is now saturating well on 3L O2. Pt is afebrile with no leukocytosis. K+ 2.9. CTA chest negative for PE. + progressing L pleural effusion and L lower lobe consolidation. Pt is stable and will be admitted for further evaluation and treatment. Physical Exam (per Admitting): General Appearance: WD/WN, no apparent distress, + pertinent finding (Pt is laying in bed with son and daughter at bedside; pt noted to have conversational dyspnea) Head: normocephalic, atraumatic Eyes: normal inspection ENT: hearing grossly normal Neck: supple Respiratory/Chest: chest non-tender, no respiratory distress, no accessory muscle use, + wheezing, + pertinent finding (decreased breath sounds L lung base ) Cardiovascular: regular rate, rhythm, no edema, no murmur Abdomen/GI: normal bowel sounds, non tender, soft Back: normal inspection Extremities/Musculoskelatal: normal inspection, no calf tenderness, no pedal edema Neurologic/Psych: alert, normal mood/affect, oriented x 3 Skin: normal color, warm/dry Hospital Course ACUTE RESPIRATORY FAILURE WITH HYPOXIA: SECONDARY TO L SIDED PNEUMONIA/PLEURAL EFFUSION Patient presented with worsening SOB, dry cough and left sided pleuritic pain Pleural effusion likely malignant in origin S/P Left thoracentesis and Pleurx catheter placement CTA: L sided pneumonia and progressing pleural effusion; no evidence of PE Continue Oxygen support, PO Levaquin, Bronchodilators Appreciate Pulmonary/CT surgery help Continue Toradol per Pulm Radiation oncology on board: Planned for possible palliative radiation therapy if not resolution of symptoms as outpatient FU blood culture: No growth to date Pleural fluid studies:cultures pending Repeat CXR: No pneumothorax. 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 currently undergoing immunotherapy with Keytruda every 3 weeks (last tx ) Appreciate hem/onc and radiation oncology input Patient and family not interested about palliative care involvement Bone scan: as below Left leg pain likely secondary to mets HTN Continue losartan and metoprolol Continue to monitor DVT PROPHYLAXIS Lovenox SQ CODE STATUS DNR DISPOSITION: Patient prefers to be discharged home: may need home health Follow up with on 05/24 at 1:10pm Follow up with Dr.Veeral Agee for possible palliative radiation therapy as advised Follow up with (Oncology) at [place] 06/06/16 at 3:00pm Follow up with (Oncology) for further treatments as advised Follow up with in 1 week as advised PROCEDURES: BONE SCAN: 1. Increased activity of the right and to lesser extent left sacroiliac joint as well as the S1 component of the sacrum. 2. Nonspecific increased activity left femoral head neck and proximal femoral shaft. 3. Increased activity right 10th rib and anterior ninth rib. 4. Possible metastatic disease must be consideration CT CHEST: 1. A left-sided chest tube is in place as detailed above. There is no pneumothorax. 2. There is a small residual left pleural effusion with dense left basilar consolidation. This has significantly decreased in size from 05/15/2016. 3. There is a trace right pleural effusion with right basilar consolidation. Cortical clinically for evidence of superimposed pneumonia at the lung bases. 4. Advanced emphysema and cardiomegaly with evidence of pulmonary artery hypertension. 5. There are numerous bilateral pulmonary nodules as detailed above. The largest measures 8 mm and is located in the right lower lobe. The appearance is highly concerning for metastatic disease. 6. There is an osteolytic lesion in the right 9th rib with evidence of pathologic fracture. 7. A low-density hepatic metastasis as well as a peritoneal implant anterior to the liver are identified in the upper abdomen. 8. Bulky mediastinal lymphadenopathy is consistent with metastatic disease. 9. Additional findings as above. Total time spent on discharge = 40 minutes This includes examination of the patient, discharge planning, medication reconciliation, and communication with other providers. Discharge Instructions Discharge Instructions Date of Service May 18, 2016. Admission Reason for Admission: Hypoxia, Pneumonia Discharge Discharge Diagnosis / Problem: Pneumonia, Left pleural effusion, Metastatic lung disease Discharge Goals Goal(s): Decrease discomfort, Improve function Activity Recommendations Activity Limitations: resume your previous activity Exercise/Sports Limitations: as tolerated . Instructions / Follow-Up Instructions / Follow-Up Follow up with on 05/24 at 1:10pm Follow up with Dr.Veeral Agee for possible palliative radiation therapy as advised Follow up with (Oncology) at [place] 06/06/16 at 3:00pm Follow up with (Oncology) for further treatments as advised Follow up with in 1 week as advised with a repeat Chest X ray Complete the antibiotic course as prescribed Seek immediate medical attention if your symptoms reoccur or worsen Follow wound care instructions as advised Current Hospital Diet Patient's current hospital diet: Regular Diet Discharge Diet Recommended Diet: Regular Diet Pending Studies Studies pending at discharge: yes List of pending studies: Pleural fluid cultures Medical Emergencies . Who to Call and When: Medical Emergencies: If at any time you feel your situation is an emergency, please call 911 immediately. . Non-Emergent Contact Non-Emergency issues call your: Primary Care Provider, Oncologist Call Non-Emergent contact if: you have a fever, your pain is not controlled, your pain is worsening, your pain is unusual for you, you have any medication questions . . "Provider Documentation" section prepared by Tanner Martin. VTE Core Measure Inpt VTE Proph given/why not?: Enoxaparin (Lovenox)SQ
[2016-05-22 09:29] LABS: ISTAT CREATININE 0.6 mg/dl (0.6-1.3); ISTAT HEMOGLOBIN 12.6 g/dl (12.0-16.0); ISTAT IONIZED CALCIUM 1.09 mmol/l (1.12-1.32)
[2016-06-16] MEDS ORDERED: HYDR-3983 PO (10:34)
[2016-06-26] MEDS ORDERED: POTA10CA28 PO (13:13)
== END 2016-05-18 17:35 | disposition home health service (06) | DRG 180 ==
LOC: ENRESERVDT → ENRESERVTM → C.EDB 12:38 → C.MED 17:13
PROVIDERS: ADMIT Hospitalist; ATTEND Internal Medicine
PROC: 0W9B30Z Drainage of Left Pleural Cavity with Drainage Device, Percutaneous Approach (ICD-10-PCS; principal; 2016-05-16)
PROC: 0WPBX0Z Removal of Drainage Device from Left Pleural Cavity, External Approach (ICD-10-PCS; 2016-05-18)
DX: C34.32 Malignant neoplasm of lower lobe, left bronchus or lung (principal); J18.9 Pneumonia, unspecified organism; J96.01 Acute respiratory failure with hypoxia; J91.0 Malignant pleural effusion; C79.51 Secondary malignant neoplasm of bone; C78.7 Secondary malignant neoplasm of liver and intrahepatic bile duct; C79.72 Secondary malignant neoplasm of left adrenal gland; J43.9 Emphysema, unspecified; M81.0 Age-related osteoporosis without current pathological fracture; Z66 Do not resuscitate; E87.6 Hypokalemia; I10 Essential (primary) hypertension; J45.30 Mild persistent asthma, uncomplicated; E83.42 Hypomagnesemia; Z87.01 Personal history of pneumonia (recurrent); Z87.891 Personal history of nicotine dependence; Z90.49 Acquired absence of other specified parts of digestive tract; Z90.89 Acquired absence of other organs; Z98.891 History of uterine scar from previous surgery; Z98.890 Other specified postprocedural states; Z82.49 Family history of ischemic heart disease and other diseases of the circulatory system; Z80.0 Family history of malignant neoplasm of digestive organs; Z79.899 Other long term (current) drug therapy

== ENCOUNTER → 2016-05-26 | Outpatient (CLI) | payer OTHER ==
[~2016-05-26] MED LIST changes: -ALBUAER INH; +HYDR-3983 PO; +LOSA50TA6 PO; +LVQ750 PO; -ONDA8TAB6 PO; +PEMB1INJ IV; +POTA10CA28 PO; -PROC1TAB5 PO
--- NOTE | 2016-05-26 15:04 | DIAGNOSTIC IMAGING REPORT ---
CHEST 2 VIEWS ROUTINE CLINICAL HISTORY: J90 Pleural [id number] COMPARISON STUDY: 05/18/2016 FINDINGS: The left-sided pleural drain is been removed. There is a small left pleural effusion with associated left basilar atelectasis/consolidation. There is a trace right pleural effusion. The heart is mildly enlarged. There is no failure. There is a right-sided A-Port catheter.[ IMPRESSION: 1. Interval removal of the left pleural drain 2. Small left pleural effusion with left lower lobe atelectasis/consolidation 3. Trace right pleural effusion 4. Emphysema Electronically signed by: Aidan Evans M.D. 05/26/2016 3:03 PM Dictated Date/Time: 05/26/2016 3:01 PM
== END | disposition home or self-care (01) ==
LOC: C.RAD1850 13:59
PROVIDERS: ATTEND Surgery
DX: J90 Pleural effusion, not elsewhere classified (principal); J43.9 Emphysema, unspecified